=== PATIENT | female | born 1950 | race Caucasian/White ===

== ENCOUNTER → 2016-08-08 | Outpatient (CLI) | payer MEDICARE, BC ==
[2016-08-08 08:51] LABS: Blood Urea Nitrogen 15 mg/dL (7-17); Non-African American GFR(MDRD) >60 (>60 ml/min/1.73 sqM)
--- NOTE | 2016-08-08 10:04 | CT ---
EXAMINATION TYPE: CT ChestAbdPelvis w con DATE OF EXAM: 08/08/2016 9:38 AM COMPARISON: Prior CT chest abdomen pelvis 30 November 2014, one November 2015, four April 2016 HISTORY: Patient has no complaints at time of service. Follow up study for known endometrial CA. CT DLP: 2454 mGycm Automated exposure control for dose reduction was used. CONTRAST: CT scan of the chest, abdomen and pelvis is performed with Oral Contrast and with IV Contrast, patien t injected with 100 mL of Omnipaque 300. FINDINGS: In the supraclavicular location on the left there is a soft tissue mass measuring approxima tely 2.9 cm in diameter which is minimally increased as compared to prior exam, 2.8 cm. Soft tissue p osterior to the descending aorta shows a similar attenuation but may have grown slightly in the inter torres measuring approximately 3.5 cm x 5.2 centimeters in transverse by cephalad to caudal dimension wh ereas on previous exam measured 3.3 cm x 4.3. LUNGS: The lungs are remarkable for some groundglass opacity at the right lung base peripherally righ t and left, some minimal dependent atelectatic change is suspected additionally. Subpleural nodular d ensity in the left lower lobe on axial image 26 is subcentimeter in size, 3 to 4 mm subpleural nodula r density left lower lobe image #23 also not seen on previous exam. Pericardial effusion is present. There are coronary artery calcifications. There is no pleural effusion or pneumothorax seen. The tra cheobronchial tree is patent. MEDIASTINUM: There are no greater than 1 cm hilar or mediastinal lymph nodes. No pericardial effusi on is seen. AORTA: Right-sided aortic arch is present. Retroesophageal left subclavian vein is present, calcific ation present at the origin. OTHER: No additional significant abnormality is seen. LIVER/GB: Patient is post cholecystectomy. Liver shows low attenuation likely due to fatty infiltrati on and is enlarged. PANCREAS: No significant abnormality is seen. SPLEEN: Spleen is enlarged and not significantly changed ADRENALS: No significant abnormality is seen. KIDNEYS: No significant abnormality is seen. REPRODUCTIVE ORGANS: Absent BOWEL: No significant abnormality is seen. Umbilical hernia contains fat. FREE AIR: No Free Air visible. ASCITES: None seen. RETROPERITONEAL ADENOPATHY: No retroperitoneal adenopathy is seen. LYMPH NODES: No greater than 1 cm abdominal or pelvic lymph nodes are appreciated. URINARY BLADDER: No significant abnormality is seen. PELVIC ADENOPATHY: None visualized. OSSEOUS STRUCTURES: No significant abnormality is seen. IMPRESSION: Interval increase in size in patient's metastatic foci, difficult to exclude new pulmonar y diastasis. Hepatosplenomegaly, additional findings above.
== END | disposition home or self-care (01) ==
LOC: RADCTMAIN 08:08
PROVIDERS: ATTEND Internal Medicine Hematology & Oncology
DX: C54.1 Malignant neoplasm of endometrium (principal); R16.2 Hepatomegaly with splenomegaly, not elsewhere classified
CPT/HCPCS: 82565; 84520; 71260; 74177; 36415; Q9967

== ENCOUNTER → 2016-10-16 | Outpatient (CLI) | payer MEDICARE, BC ==
--- NOTE | 2016-10-16 23:26 | MR ---
EXAMINATION TYPE: MR courtneyine/baltazar wo/w con DATE OF EXAM: 10/16/2016 11:59 AM COMPARISON: NONE HISTORY: Endeometrial ca, Back pain, Rt leg is not working. CONTRAST: Performed utilizing 20 mL intravenous MultiHance gadolinium contrast. TECHNIQUE: Multiplanar, multiecho imaging on a 3.0 Su magnet is performed through the thoracic spi ne. There is a 2.2 x 1.2 x 1.2 cm mass posterior to the T9 vertebral body within the spinal canal mary kate sing the spinal cord towards the left. This enhances following contrast administration. No additional thoracic masses are identified. Approximate 0.3 cm of spinal canal space remains. There is increased signal within the spinal cord extending from T8 T10 Vertebral body alignment is normal. Vertebral body heights are preserved. Disc space narrowing is present T10-T11. Mild disc bulging is anterior thecal sac flattening. No cord contact is evident. Facet changes are present. Disc hydration levels are preserved. Osseous structures have a heterogenous appearance. Underlying metastasis is likely present. IMPRESSIONS: 1. Mass posterior to T9 within the spinal canal compressing the spinal cord. 2. Spinal cord edema extends from T8 through T10. 3. Osseous metastasis likely present EXAMINATION TYPE: MR courtneyine/baltazar wo/w con DATE OF EXAM: 10/16/2016 11:59 AM COMPARISON: NONE HISTORY: Endeometrial ca, Back pain, Rt leg is not working. CONTRAST: 20 mL intravenous MultiHance. TECHNIQUE: Multiplanar, multisequence images of the lumbar spine were acquired. FINDINGS: L5-S1: There is a grade 1 spondylolisthesis of L5 anteriorly on S1. Disc uncovering is present with a nterior thecal sac contact. Facet hypertrophy is present with posterior lateral thecal sac compressio n lateral canal narrowing. No AP spinal canal stenosis present. There is moderate right and mild left foraminal stenosis. L4-L5: Mild disc bulge is present. This is anterior thecal sac contact. Facet hypertrophy is ligament um flavum laxity with lateral canal narrowing. No AP spinal canal stenosis present. L3-L4: No significant disc bulge or disc herniation. No spinal canal stenosis. No foraminal stenosi s. Facet hypertrophy is present with posterior lateral thecal sac contact.. L2-L3: No significant disc bulge or disc herniation. No spinal canal stenosis. No foraminal stenosi s. Mild facet hypertrophy is present. L1-L2: No significant disc bulge or disc herniation. No spinal canal stenosis. No foraminal stenosi s. . T12-L1: No significant disc bulge or disc herniation. No spinal canal stenosis. No foraminal stenos is. Neural foramen are patent.. There is some heterogenous enhancement through the lumbar spine suspicious for metastatic disease. IMPRESSION: 1. Lateral canal stenosis due to facet hypertrophy L5-S1. 2. Grade 1 spondylolisthesis of L5 anterior S1. 3. Osseous metastasis likely present.
== END | disposition home or self-care (01) ==
LOC: RADMRIMAIN 09:44
PROVIDERS: ATTEND Internal Medicine Hematology & Oncology
DX: M48.07 Spinal stenosis, lumbosacral region (principal); G95.19 Other vascular myelopathies; M43.17 Spondylolisthesis, lumbosacral region; M53.84 Other specified dorsopathies, thoracic region; C54.1 Malignant neoplasm of endometrium
CPT/HCPCS: 72157; 72158; A9577

== ENCOUNTER 2016-10-17 01:36 | Emergency (ER) | payer MEDICARE, BC ==
[2016-10-17] MEDS ORDERED: DEXAMETHASONE SOD PHOSPHATE 10 MG/ML 1 ML VIAL IV STA (01:48)
[2016-10-17] MEDS ORDERED: MORPHINE SULFATE 4 MG/ML SYRINGE IV STA (01:49)
[2016-10-17 02:23] LABS: Aty Lym Flag Moderate; CH 29.5; CHCM 33.2; HCT 44.7 % (34.0-46.0); HDW 2.77; HGB 15.2 gm/dL (11.4-16.0); MCH 30.3 pg (25.0-35.0); MCHC 33.9 g/dL (31.0-37.0); MCV 89.2 fL (80.0-100.0); Mean Platelet Volume 6.5; RBC 5.01 m/uL (3.80-5.40); RDW 14.1 % (11.5-15.5); WBC 8.7 k/uL (3.8-10.6); WBC (Perox) 8.59
[2016-10-17 02:30] LABS: Anion Gap 10 mmol/L; Blood Urea Nitrogen 21 mg/dL (7-17); Calcium 9.3 mg/dL (8.4-10.2); Carbon Dioxide 23 mmol/L (22-30); Chloride 105 mmol/L (98-107); Glucose 93 mg/dL (74-99); Non-African American GFR(MDRD) >60 (>60 ml/min/1.73 sqM); Potassium 3.7 mmol/L (3.5-5.1); Sodium 138 mmol/L (137-145)
[2016-10-17 03:13] LABS: Add Differential Manual Differential
[2016-10-17 03:16] LABS: Manual Review Performed; Nucleated Red Blood Cells 0 /100 WBC (0-0); Reactive Lymphocytes Present; Total Cells Counted 100
--- NOTE | 2016-10-17 03:17 | ED ---
General Adult HPI - General Chief complaint: Recheck/Abnormal Lab/Rx Stated complaint: spinal tumor-sent by Dr Nieto Time Seen by Provider: 10/17/16 01:48 Source: patient, family Mode of arrival: ambulatory Limitations: no limitations - History of Present Illness Initial comments: This patient is a 66-year-old woman who presents to the hospital due to back pain and right leg weakness. The patient gives a history of having uterine cancer about 3 or 4 years ago, and then having what sounds like a brain met 1-2 years ago. She states she had been having some back pains over the past couple of months, she was eventually seen by one of the oncologist who sent her to have an MRI of the spine. This revealed presence of what appears to be a spinal metastasis and cord compression. The patient notes that over the past week she has been having increasing right leg weakness. She states that now she is not able to lift her leg and less she grasps her pant leg and lifts her leg by hand. He has also had some difficulty in initiating urination. Onset/Timin -: week(s) Location: back Radiation: non-radiation Severity scale (1-10): 6 Quality: burning Consistency: constant Improves with: none Worsens with: none - Related Data Home Medications Medication Instructions Recorded Confirmed ALPRAZolam [Xanax] 0.5 mg PO HS 04/12/14 10/17/16 Anastrozole [Anastrozole] 1 mg PO DAILY 04/12/14 10/17/16 Aspirin 81 mg PO DAILY 04/12/14 10/17/16 Hydrocodone/Acetaminophen 1 tab PO Q8HR PRN 04/12/14 10/17/16 [Hydrocodone/Acetaminophen 5-325] Ranitidine HCl [Zantac] 150 mg PO DAILY 04/12/14 10/17/16 traZODone HCL [Desyrel] 100 mg PO HS 04/12/14 10/17/16 Cyclobenzaprine [Flexeril] 5 mg PO TID 10/17/16 10/17/16 Previous Rx's Medication Instructions Recorded HYDROcodone/APAP 7.5-325MG [[place] 1 each PO Q4H PRN #40 tab 04/14/14 7.5] HYDROcodone/APAP 10-325MG [[place] 1 each PO Q6H PRN #15 tab 11/24/14 10-325] HYDROcodone/APAP 7.5-325MG [[place] 1 each PO Q4H PRN #15 tab 11/24/14 7.5-325] valACYclovir HCL [Valtrex] 1,000 mg PO Q8HR #21 tab 11/24/14 Allergies Allergy/AdvReac Type Severity Reaction Status Date / Time No Known Allergies Allergy Verified 10/17/16 01:44 Review of Systems ROS Statement: Those systems with pertinent positive or pertinent negative responses have been documented in the HPI. ROS Other: All systems not noted in ROS Statement are negative. Constitutional: Reports: weakness (Right leg). Denies: fever, chills Respiratory: Denies: cough, dyspnea, wheezes Cardiovascular: Denies: chest pain, palpitations, edema Gastrointestinal: Denies: abdominal pain, vomiting, diarrhea, melena, hematochezia Genitourinary: Denies: dysuria, hematuria Musculoskeletal: Reports: as per HPI, back pain Skin: Denies: rash Neurological: Reports: weakness (Right leg), abnormal gait. Denies: headache, numbness, paresthesias Past Medical History Past Medical History: Cancer Additional Past Medical History / Comment(s): Uterine Cancer, tumor on spine History of Any Multi-Drug Resistant Organisms: None Reported Past Surgical History: Appendectomy, Cholecystectomy, Hysterectomy, Orthopedic Surgery, Tonsillectomy Additional Past Surgical History / Comment(s): medi port Past Psychological History: No Psychological Hx Reported Smoking Status: Never smoker Past Alcohol Use History: None Reported Past Drug Use History: None Reported General Exam Limitations: no limitations General appearance: alert, in no apparent distress, obese Head exam: Present: atraumatic, normocephalic Eye exam: Present: normal appearance. Absent: scleral icterus, conjunctival injection Respiratory exam: Present: normal lung sounds bilaterally. Absent: respiratory distress, wheezes, rales, rhonchi, stridor Cardiovascular Exam: Present: regular rate, normal rhythm, normal heart sounds. Absent: systolic murmur, diastolic murmur, rubs, gallop GI/Abdominal exam: Present: soft. Absent: distended, tenderness, guarding, rebound, mass Extremities exam: Present: normal inspection, normal capillary refill. Absent: pedal edema, calf tenderness Back exam: Absent: CVA tenderness (R), CVA tenderness (L), paraspinal tenderness , vertebral tenderness Neurological exam: Present: alert, motor sensory deficit (Patient has marked weakness of foot dorsiflexion.) Course Vital Signs 10/17/16 01:40 Temperature 98 F Pulse Rate 89 Respiratory 20 Rate Blood Pressure 127/69 O2 Sat by Pulse 95 Oximetry Medical Decision Making - Medical Decision Making Patient is 66-year-old woman presenting with back pain and right leg weakness. She does have what appears to be metastases to the spine at the T9 level identified by the MRI. Patient is given analgesic and Decadron. After discussion with the patient's oncologist and the patient she would like to go to [facility] where she has previously had service of Dr. Tai. - Lab Data Result diagrams: 10/17/16 02:05 10/17/16 02:05 Lab Results 10/17/16 10/17/16 Range/Units 02:05 02:05 WBC 8.7 (3.8-10.6) k/uL RBC 5.01 (3.80-5.40) m/uL Hgb 15.2 (11.4-16.0) gm/dL Hct 44.7 (34.0-46.0) % MCV 89.2 (80.0-100.0) fL MCH 30.3 (25.0-35.0) pg MCHC 33.9 (31.0-37.0) g/dL RDW 14.1 (11.5-15.5) % Plt Count 198 (150-450) k/uL Neutrophils % (Manual) 48.0 % Lymphocytes % (Manual) 42.0 % Monocytes % (Manual) 10.0 % Neutrophils # (Manual) 4.2 (1.3-7.7) k/uL Lymphocytes # (Manual) 3.7 (1.0-4.8) k/uL Monocytes # (Manual) 0.9 (0-1.0) k/uL Nucleated RBCs 0 (0-0) /100 WBC Manual Slide Review Performed Reactive Lymphocytes Present Sodium 138 (137-145) mmol/L Potassium 3.7 (3.5-5.1) mmol/L Chloride 105 (98-107) mmol/L Carbon Dioxide 23 (22-30) mmol/L Anion Gap 10 mmol/L BUN 21 H (7-17) mg/dL Creatinine 0.70 (0.52-1.04) mg/dL Est GFR (MDRD) Af Amer >60 (>60 ml/min/1.73 sqM) Est GFR (MDRD) Non-Af >60 (>60 ml/min/1.73 sqM) Glucose 93 (74-99) mg/dL Calcium 9.3 (8.4-10.2) mg/dL Disposition Clinical Impression: Spinal 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 Specs Out of Hospital Transfer - Requested Specifics: Other Emergency Center
[2016-10-17 03:29] VITALS: BP 158/73; PULSE 74; RESP 18; TEMP 97.1
== END 2016-10-17 03:50 | disposition other institution (70) ==
LOC: EC 01:36
DX: C79.51 Secondary malignant neoplasm of bone (principal); G95.29 Other cord compression; Z85.42 Personal history of malignant neoplasm of other parts of uterus; Z79.82 Long term (current) use of aspirin; Z79.899 Other long term (current) drug therapy
CPT/HCPCS: 36415; 80048; 85025; 99285; 96374; 96375; J2270; J1100

== ENCOUNTER → 2017-01-02 | Outpatient (CLI) | payer MEDICARE, BC ==
[2017-01-02 14:55] LABS: Blood Urea Nitrogen 9 mg/dL (7-17); Non-African American GFR(MDRD) >60 (>60 ml/min/1.73 sqM)
--- NOTE | 2017-01-02 15:34 | CT ---
EXAMINATION TYPE: CT chest w con DATE OF EXAM: 01/02/2017 COMPARISON: 08/08/2016 HISTORY: Endometrial CA, chemo exposure CT DLP: 489.2 mGycm Automated exposure control for dose reduction was used. CONTRAST: CT scan of the chest is performed with IV Contrast, patient injected with 100 mL of Omnipaque 300. FINDINGS: LUNGS: Subpleural nodule left lower lobe stable in size measuring 3 mm. Linear subpleural nodule righ t upper lobe posteriorly is most likely postinflammatory. Areas of subsegmental consolidation most ty pical of atelectasis. MEDIASTINUM: Right-sided aortic arch noted appears to result in a vascular ring around the trachea wi th retroesophageal left subclavian artery. Anterior mediastinal lymphadenopathy seen the largest lymp h node measuring short axis of 1 cm and previously measured in short axis of 1 cm and stable. Additio nal shotty adenopathy seen. Subcarinal adenopathy also appears stable. Retroaortic density in the rig ht with right-sided aortic arch is also stable measures 3.3 x 2.3 cm x 5.2 and previously measured 3. 3 x 2.5 cm x 5.2. Small pericardial effusion is stable. The heart is enlarged. OTHER: Left supraclavicular adenopathy measuring 3 cm is stable in appearance.. Shotty adenopathy in the axilla noted. Previous cholecystectomy changes noted. Postsurgical change in the thoracic spine suggestive of laminectomy. Correlate clinically. Subcutaneous fluid collection likely postoperative i n the posterior soft tissues. No definite mass seen by CT scan. Attenuation along the posterior eleme nts of the area of resection most likely related to scar or granulation tissue but most adequately ev aluated with MRI. IMPRESSION: 1. Stable adenopathy involving the supraclavicular region on the left and mediastinum as measured abo ve. 2. 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 3. Stable subpleural less than 5 mm nodularity unchanged from previous exam. 4. Small to moderate-sized pericardial effusion is stable
--- NOTE | 2017-01-03 09:48 | ECHOF ---
Referral Reason: MEASUREMENTS -------- HEIGHT: 157.5 cm WEIGHT: 113.4 kg BP: 142/74 RVIDd: 2.7 cm (< 3.3) IVSd: 1.3 cm (0.6 - 1.1) LVIDd: 4.3 cm (3.9 - 5.3) LVPWd: 1.3 cm (0.6 - 1.1) IVSs: 1.7 cm LVIDs: 3.0 cm LVPWs: 1.6 cm LAESV Index (A-L): 17.64 ml/m Ao Diam: 3.6 cm (2.0 - 3.7) AV Cusp: 1.1 cm (1.5 - 2.6) LA Diam: 3.3 cm (2.7 - 3.8) MV EXCURSION: 17.701 mm (> 18.000) MV EF SLOPE: 46 mm/s (70 - 150) EPSS: 0.7 cm MV E Fletcher: 0.52 m/s MV DecT: 286 ms MV A Fletcher: 0.67 m/s MV E/A Ratio: 0.78 RAP: 5.00 mmHg RVSP: 16.53 mmHg FINDINGS -------- Sinus rhythm. This was a technically adequate study. Patient had difficulty moving. Test performed in a wheelchair in the upright position. There is mild concentric left ventricular hypertrophy. Overall left ventricular systolic function is normal with, an EF between 55 - 60 %. The right ventricle is normal in size and function. Normal LA size by volume 22+/-6 ml/m2. The right atrium is normal in size. There is mild aortic valve sclerosis. There is no evidence of aortic regurgitation. There is no evidence of aortic stenosis. The mitral valve leaflets are mildly thickened. Mild mitral annular calcification present. There is trace to mild mitral regurgitation. Trace tricuspid regurgitation present. There is no evidence of pulmonary hypertension. The right ventricular systolic pressure, as measured by Doppler, is 16.53mmHg. The pulmonic valve was not well visualized. The aortic root size is normal. Normal inferior vena cava with normal inspiratory collapse consistent with estimated right atrial pressure of 5 mmHg. The pericardium is normal. There is a small, generalized pericardial effusion present. CONCLUSIONS -------- 1. Sinus rhythm. 2. There is trace to mild mitral regurgitation. 3. Trace tricuspid regurgitation present. 4. There is no evidence of pulmonary hypertension. 5. The right ventricular systolic pressure, as measured by Doppler, is 16.53mmHg. 6. The pulmonic valve was not well visualized. 7. The aortic root size is normal. 8. There is a small, generalized pericardial effusion present. 9. This was a technically adequate study. 10. Patient had difficulty moving. Test performed in a wheelchair in the upright position. 11. There is mild concentric left ventricular hypertrophy. 12. Overall left ventricular systolic function is normal with, an EF between 55 - 60 %. 13. Normal LA size by volume 22+/-6 ml/m2. 14. There is mild aortic valve sclerosis. 15. The mitral valve leaflets are mildly thickened. 16. Mild mitral annular calcification present. FINANCIAL OPERATIONS CONSULTANT: Se Rogers RDCS
== END | disposition home or self-care (01) ==
LOC: RADCTMAIN 14:19
PROVIDERS: ATTEND Internal Medicine Hematology & Oncology
DX: Z01.818 Encounter for other preprocedural examination (principal); C54.1 Malignant neoplasm of endometrium; I08.1 Rheumatic disorders of both mitral and tricuspid valves; I31.3 Pericardial effusion (noninflammatory); Q25.8 Other congenital malformations of other great arteries
CPT/HCPCS: 93306; 82565; 84520; 71260; 36415; Q9967

== ENCOUNTER → 2017-03-23 | Outpatient (CLI) | payer MEDICARE, BC ==
[2017-03-23 12:49] LABS: Blood Urea Nitrogen 13 mg/dL (7-17); Non-African American GFR(MDRD) >60 (>60 ml/min/1.73 sqM)
== END | disposition home or self-care (01) ==
LOC: LABWHC1 11:42
PROVIDERS: ATTEND Internal Medicine Hematology & Oncology
DX: Z01.812 Encounter for preprocedural laboratory examination (principal); C54.9 Malignant neoplasm of corpus uteri, unspecified
CPT/HCPCS: 36415; 82565; 84520

== ENCOUNTER → 2017-03-26 | Outpatient (CLI) | payer MEDICARE, BC ==
--- NOTE | 2017-03-26 08:53 | CT ---
EXAMINATION TYPE: CT soft tissue neck w con, CT ChestAbdPelvis w con DATE OF EXAM: 03/26/2017 HISTORY: supraclavicular swelling on the Lt, hx of endometrial CA COMPARISON: 01/02/2017 and 08/08/2016 CT DLP: 565.75 (accession [id number]), 2613.25 (accession [id number]) mGycm. Automated Exposure Control for Dose Reduction was Utilized. TECHNIQUE: CT scan of the neck is performed with IV Contrast, patient injected with 100 mL of Omnipa que 300, axial images are obtained, coronal and sagittal reformatted images are reviewed. FINDINGS: NECK: Adenopathy: Left supraclavicular mass measures at least 3.9 x 4.3 x 5.2 cm with surrounding inflammat ory change and central necrosis. There is mass effect upon the jugular vein and its inferior portion with multiple surrounding smaller lymph nodes within the supraclavicular region and superior left axilla. Abnormal morphology with a rounded appearance. Numerous other nonenlarged (none greater than 1 cm in short axis) anterior and posterior cervical chain lymph nodes are present. Airway: No gross abnormali ty seen. PAROTID/SUBMANDIBULAR GLANDS: No gross abnormality seen. CAROTID/VASCULAR STRUCTURES: No evidence of hemodynamically significant stenosis. Note is made of a r ight-sided aortic arch and retroesophageal origin of the left subclavian vein that again places mass effect upon the esophagus as it is interposed between the trachea and descending thoracic aorta. OTHER: Left occipital craniectomy change with fixation plates are seen. CHEST/ABDOMEN/PELVIS: LUNGS: There is a stable presumably benign 3 mm subpleural nodule in the superior segment of the left lower lobe on series 11 image 23. Although evaluation for subcentimeter pulmonary nodules is slightl y limited given patient respiratory artifact no new pulmonary nodules or masses are seen. Minimal bib asilar subsegmental atelectasis is noted. There is no pleural effusion or pneumothorax seen. The tra cheobronchial tree is patent. MEDIASTINUM: There is also been interval enlargement and new rounded suspicious morphology of a preva scular lymph node on series 10 image 17 measuring 1.8 cm in short axis. There is also increase in siz e of the right paraspinal mass that extends approximately 180 degrees around the descending thoracic aorta measuring approximately 4.3 x 3.8 x 6.5 cm (previously measuring 3.3 x 2.3 x 5.2 cm). The known spinal cord edema previously seen on the MRI dated 10/16/2016 is not visualized on CT nor is the comp ression on the spinal cord. OTHER: Minimally increased pericardial effusion is low density with greatest thickness posteriorly me asuring 1.5 cm, moderate in degree. Mild calcifications of the left anterior descending coronary bella ry and mitral annulus are noted. LIVER/GB: The liver is grossly unremarkable with no focal hepatic lesion identified. Scant amount of perihepatic fluid is seen along the inferior margin tracking down the right lateral conal fascia. Gal lbladder is surgically absent. PANCREAS: Diffuse moderate pancreatic atrophy is noted. SPLEEN: Spleen is mildly prominent but not enlarged measuring 13.2 cm in craniocaudal dimension. ADRENALS: No significant abnormality is seen. KIDNEYS: Left renal sinus cyst and right lower pole and upper pole cortical hypoattenuated lesions th at are too small to accurately characterize but likely represent cysts are redemonstrated, overall un changed from the prior exam. No evidence of hydronephrosis. BOWEL: Few sigmoid diverticula are present without pericolonic fat stranding. Multiple loops of dista l ileum are not opacified in the right low pelvis and right lower quadrant but have a similar morphol ogy to the prior exam. GENITAL ORGANS: The uterus is surgically absent with stable surgical scarring/granulation tissue. Uri nary bladder is incompletely distended although does demonstrate some surrounding fat stranding and m ucosal hyperemia circumferential thickening which may relate to underlying cystitis. LYMPH NODES: Enlarged superficial inguinal lymph nodes in comparison to the prior exam are seen bilat erally, abnormally rounded in morphology measuring up to 1.0 cm in short axis on the left and 1.1 cm in short axis on the right. Numerous nonenlarged periaortic lymph nodes are seen. OSSEOUS STRUCTURES: Postsurgical changes of the thoracic spine are again noted with no new suspicious osseous lesion. Small fluid collection posterior has decreased in size and likely represents resolvi ng seroma with scar/granulation tissue. Stable grade 1 anterolisthesis of L5 on S1 is again seen. Sta ble bone islands are present in the visualized femurs. OTHER: Diastases recti and postsurgical changes of the subcutaneous soft tissues are noted. Right-burt ed Mediport is also seen. IMPRESSION: 1. Progression of presumed metastatic disease of the patient's known endometrial carcinoma with new i nterval significant enlargement in the known left supraclavicular adenopathy, right paraspinal mass t hat also may represent adenopathy, mediastinal adenopathy, and superficial inguinal adenopathy. 2. Increase in degree of simple appearing pericardial effusion, now moderate measuring up to 1.5 cm d ependently. 3. Prominent but nonenlarged size of the spleen approaching criteria for splenomegaly. 4. No evidence of pulmonary or visceral metastasis. Findings relayed to staff Yvonne CAPONE) at Dr. Durbin's office who will relay the information to Dr. Caden gutierrez directly on 03/26/2017 8:48 AM.
== END ==
LOC: RADCTMAIN 06:49
PROVIDERS: ATTEND Internal Medicine Hematology & Oncology
DX: C54.9 Malignant neoplasm of corpus uteri, unspecified (principal); I31.3 Pericardial effusion (noninflammatory); R16.1 Splenomegaly, not elsewhere classified
CPT/HCPCS: 70491; 71260; 74177; Q9967

== ENCOUNTER → 2017-05-21 | Outpatient (CLI) | payer MEDICARE, BC ==
[2017-05-21 11:16] LABS: Blood Urea Nitrogen 15 mg/dL (7-17); Non-African American GFR(MDRD) >60 (>60 ml/min/1.73 sqM)
--- NOTE | 2017-05-21 12:32 | CT ---
EXAMINATION TYPE: CT ChestAbdPelvis w con DATE OF EXAM: 05/21/2017 COMPARISON: CT chest abdomen and pelvis from March 26, 2017 and older studies. HISTORY: Endometrial cancer. Hx of hysterectomy, cholecystectomy, appendectomy, bowel obstruction. 10 0ml of Omni 300. Prior on 03.26.17. Scanned by: LS and MB. Currently undergoing chemotherapy. CT DLP: 1674.6 mGycm. Automated Exposure Control for Dose Reduction was Utilized. CONTRAST: CT scan of the thorax, abdomen and pelvis is performed with oral and with IV Contrast, patient inject ed with 100ml mL of Omnipaque 300. FINDINGS: LUNGS: 2 mm subpleural nodule superior left lower lobe on axial image 26 is stable. On same image th ere is new 3 mm nodular opacity. On same image there is new 6 x 4 mm semisolid nodule anteriorly. Th ere is peripheral irregular consolidation in the inferior lingula near axial image 36. There is stabl e 8 x 6 mm lobulated nodule posterior right lung base on axial image 40. There is no pleural effusion or pneumothorax seen bilaterally. The tracheobronchial tree is patent. MEDIASTINUM: There is left-sided AP window lymph node measuring 1.8 x 1.6 cm current study image 22 n ot significantly changed from prior. There is redemonstration of right-sided arch with a variant lef t subclavian artery running posterior to esophagus, normal variant. There is left supraclavicular irr egular hypodense mass or metastatic lesion measuring 2.8 x 2.5 cm on axial image 6 slightly diminishe d from prior study measuring 3.3 x 3.2 cm axial image 4. There is persistent cardiomegaly. There is p ersistent moderate pericardial effusion perhaps slightly larger as measures up to 2.4 cm in diameter axial image 39, Hounsfield units are near 16 on current study. Coronary artery calcification is redem onstrated. Suspicious curvilinear soft tissue density along posterior medial margin of ascending aort a is again seen perhaps slightly less prominent measuring 3.1 x 2.6 cm on axial image 35 OTHER: No additional significant abnormality is seen. LIVER/GB: Cholecystectomy clips are redemonstrated. PANCREAS: Some mild to moderate fat replaced atrophy of pancreas is again seen. SPLEEN: Spleen size is stable and upper limits of normal. ADRENALS: No significant abnormality is seen. KIDNEYS: A few simple appearing cyst lower pole level of both kidneys is redemonstrated. There are fe w scattered pelvic phleboliths. BOWEL: A few scattered colonic diverticula are redemonstrated. GENITAL ORGANS: Uterus is surgically absent. LYMPH NODES: Prominent but subcentimeter left groin lymph nodes are redemonstrated and felt less prom inent versus prior. OSSEOUS STRUCTURES: Osseous structures are demineralized. Slight S-shaped scoliosis is redemonstrated . Surgical change mid to lower thoracic spine with posterior ossific resection is redemonstrated. Scl erotic focus right proximal femur felt to reflect benign bone island is redemonstrated. OTHER: No significant additional abnormality is seen. IMPRESSION: Overall mixed response is felt present. Interval improvement in visualized left supraclav icular and right periaortic adenopathy. Stable tiny left lung nodule but new suspicious subcentimeter left-sided nodules. Moderate size pericardial effusion redemonstrated continued slight progression i n size is noted.
== END | disposition home or self-care (01) ==
LOC: RADCTMAIN 09:29
PROVIDERS: ATTEND Internal Medicine Hematology & Oncology
DX: C54.1 Malignant neoplasm of endometrium (principal); R91.8 Other nonspecific abnormal finding of lung field; R59.0 Localized enlarged lymph nodes; I31.3 Pericardial effusion (noninflammatory)
CPT/HCPCS: 82565; 84520; 71260; 74177; 36415; Q9967

== ENCOUNTER 2017-08-16 12:59 | Inpatient (IN) | payer MEDICARE, BC ==
[2017-08-16] MEDS ORDERED: ONDANSETRON 4 MG/2 ML VIAL IVP STA (13:22)
[2017-08-16] MEDS ORDERED: MORPHINE SULFATE 4 MG/ML SYRINGE IV STA (13:22)
[2017-08-16] MEDS ORDERED: SODIUM CHLORIDE 0.9% 1,000 ML IV STA (13:22)
--- NOTE | 2017-08-16 14:15 | XR ---
EXAMINATION TYPE: XR chest 2V, XR KUB DATE OF EXAM: 08/16/2017 COMPARISON: NONE HISTORY: Chest pain and abdominal pain TECHNIQUE: Frontal and lateral views of the chest are obtained. Single upright abdominal radiograph was obtained FINDINGS: CHEST: There is no focal air space opacity, pleural effusion, or pneumothorax seen. Scattered left b asilar linear platelike subsegmental atelectasis is present. Right-sided Mediport is seen near the [facility] cardiophrenic angle extending into the right internal jugular and terminating in the superior dina a cava. The cardiac silhouette size is upper limits of normal. The osseous structures are intact. ABDOMEN: Moderate amount retained colonic stool is seen within nondilated bowel with the descending c olon measuring up to 5.0 cm. Mottled air is noted within the cecum. Cholecystectomy clips are seen wi thin the right upper quadrant. Moderate multilevel degenerative changes of the thoracic spine and fem oral acetabular joints. Surgical sutures are noted within the right hemipelvis. IMPRESSION: 1. No acute cardiopulmonary process. 2. Moderate amount retained colonic gas and stool and overall nonobstructive bowel gas pattern.
--- NOTE | 2017-08-16 14:16 | ED ---
General Adult HPI - General Chief complaint: Skin/Abscess/Foreign Body Stated complaint: cancer patient-skin turning yellow Time Seen by Provider: 08/16/17 13:12 Source: patient, family Mode of arrival: wheelchair Limitations: physical limitation - History of Present Illness Initial comments: 67 years old female sets with the abdominal pain and jaundice according to the patient she has a cancer of the lymph nodes she sees Dr. Durbin also complaining about the back pain she had a spinal surgery back by year ago there was a cancerous spot on the spine, she had a cancer of the uterus and spread into the spine she had a body scan done which was ordered by Dr. Durbin this month earlier seen Dr. Thomas on the July 31. Taking tramadol OxyContin and morphine for the pain he does take the edge off but she is not pain-free. Complaining about jaundice no headache no chest pain or shortness of breath complains about abdominal pain and right upper quadrant area. Her oral intake has been quite poor and she has been losing weight. - Related Data Home Medications Medication Instructions Recorded Confirmed ALPRAZolam [Xanax] 0.5 mg PO BID PRN 04/12/14 08/16/17 traZODone HCL [Desyrel] 150 mg PO HS 04/12/14 08/16/17 Aspirin EC [Ecotrin] 325 mg PO DAILY 08/16/17 08/16/17 Biotin 5 mg PO DAILY 08/16/17 08/16/17 Cholecalciferol [Vitamin D3] 1,000 unit PO DAILY@1200 08/16/17 08/16/17 Citalopram Hydrobromide [CeleXA] 10 mg PO BID 08/16/17 08/16/17 Docusate [Colace] 100 mg PO BID 08/16/17 08/16/17 Dronabinol [Marinol] 2.5 mg PO DAILY 08/16/17 08/16/17 Glucosamine Sulfate 500 mg PO DAILY 08/16/17 08/16/17 Lidocaine-Prilocaine Cream [Emla 1 applic TOPICAL DAILY PRN 08/16/17 08/16/17 Cream 2.5%/2.5%] Methocarbamol [Robaxin-750] 1,500 mg PO QID PRN 08/16/17 08/16/17 Methylphenidate HCl [Ritalin] 10 mg PO BID 08/16/17 08/16/17 Morphine Sulfate [Morphine Sulfate 30 mg PO Q12H 08/16/17 08/16/17 ER] Omeprazole 20 mg PO DAILY 08/16/17 08/16/17 Ondansetron [Zofran] 4 mg PO TID 08/16/17 08/16/17 Prochlorperazine [Compazine] 10 mg PO DAILY PRN 08/16/17 08/16/17 Sennosides-Docusate Sodium 2 tab PO BID 08/16/17 08/16/17 [Senokot-S] Simethicone 80 mg PO DAILY PRN 08/16/17 08/16/17 oxyCODONE HCL 10 mg PO DAILY@0300 08/16/17 08/16/17 traMADol HCL [Ultram] 50 mg PO DAILY@1200 PRN 08/16/17 08/16/17 Allergies Allergy/AdvReac Type Severity Reaction Status Date / Time No Known Allergies Allergy Verified 08/16/17 13:33 Review of Systems ROS Statement: Those systems with pertinent positive or pertinent negative responses have been documented in the HPI. ROS Other: All systems not noted in ROS Statement are negative. Past Medical History Past Medical History: Cancer Additional Past Medical History / Comment(s): Uterine Cancer, tumor on spine History of Any Multi-Drug Resistant Organisms: None Reported Past Surgical History: Appendectomy, Cholecystectomy, Hysterectomy, Orthopedic Surgery, Tonsillectomy Additional Past Surgical History / Comment(s): medi port Past Psychological History: No Psychological Hx Reported Smoking Status: Never smoker Past Alcohol Use History: None Reported Past Drug Use History: None Reported General Exam - General Exam Comments Initial Comments: General: The patient is awake and alert, in no distress, and he looks tired and pale GCS is 15 Skin: Skin is warm and dry and no rashes or lesions are noted. Quite jaundiced Eye: Pupils are equal, round and reactive to light, extra-ocular movements are fine Ears, nose, mouth and throat: Quite dehydrated Neck: The neck is supple, there is no tenderness or JVD. Cardiovascular: There is a regular rate and rhythm. No murmur, rub or gallop is appreciated. Respiratory: To auscultation bilateral, no wheezing no rhonchi no distress respiratory jay noticed Gastrointestinal: Anterior abdomen looks quite jaundiced, soft nontender bowel sounds are positive mildly tender over right upper quadrant area no guarding. Back: There is no tenderness to palpation in the midline. There is no obvious deformity. Musculoskeletal: Normal ROM, no tenderness, There is no pedal edema. There is no calf tenderness or swelling. No cords were appreciated. Neurological: CN II-XII intact, Cranial nerves III through XII are intact. There are no obvious motor or sensory deficits. Coordination appears grossly intact. Speech is normal. Psychiatric: Cooperative, seems depressed, normal judgment. Limitations: physical limitation Course Vital Signs 08/16/17 08/16/17 13:00 14:26 Temperature 97.2 F L Pulse Rate 92 77 Respiratory 16 16 Rate Blood Pressure 117/69 144/70 O2 Sat by Pulse 97 98 Oximetry - Reevaluation(s) Reevaluation #1: Labs are pending at this point so is the CT abdomen and pelvis considering her oral intake weight loss and unexplained jaundice, this is new onset she would need admission she be admitted to Dr. Ernst service regardless Dr. Durbin be consulted 08/16/17 14:59 Medical Decision Making - Lab Data Result diagrams: 08/16/17 14:20 Lab Results 08/16/17 Range/Units 14:20 WBC 13.5 H (3.8-10.6) k/uL RBC 4.06 (3.80-5.40) m/uL Hgb 12.3 (11.4-16.0) gm/dL Hct 41.0 (34.0-46.0) % MCV 101.1 H (80.0-100.0) fL MCH 30.4 (25.0-35.0) pg MCHC 30.1 L (31.0-37.0) g/dL RDW 14.9 (11.5-15.5) % Disposition Clinical Impression: History of uterine cancer Disposition: ADMITTED IP TO THIS HOSP Condition: Good Referrals: Octavio Lamar DO [Primary Care Provider] - 1-2 days
[2017-08-16] MEDS ORDERED: RX INFO: IV CONTRAST WAS GIVEN 1 EACH MISC MISCELLANE PRN (14:17)
[2017-08-16 14:40] LABS: HGB 12.3 gm/dL (11.4-16.0); Hypochromasia Marked; MCH 30.4 pg (25.0-35.0); MCHC 30.1 g/dL (31.0-37.0); MCV 101.1 fL (80.0-100.0); Macrocytosis Slight; Mean Platelet Volume 6.4; Platelet Count 188 k/uL (150-450); RBC 4.06 m/uL (3.80-5.40); RDW 14.9 % (11.5-15.5); WBC 13.5 k/uL (3.8-10.6)
[2017-08-16] MEDS ORDERED: NALOXONE 0.4 MG/ML 1 ML VIAL IV PRN (15:00)
[2017-08-16 15:02] LABS: ALT 407 U/L (9-52); AST 445 U/L (14-36); Albumin 3.2 g/dL (3.5-5.0); Alkaline Phosphatase 932 U/L (38-126); Amylase <30 U/L (30-110); Anion Gap 13 mmol/L; Blood Urea Nitrogen 12 mg/dL (7-17); Carbon Dioxide 23 mmol/L (22-30); Chloride 98 mmol/L (98-107); Glucose 106 mg/dL (74-99); Lipase 15 U/L (23-300); Sodium 134 mmol/L (137-145); Total Bilirubin 13.2 mg/dL (0.2-1.3); Total Protein 6.8 g/dL (6.3-8.2)
[2017-08-16] MEDS ORDERED: PROCHLORPERAZINE 10 MG TAB PO PRN (15:06)
[2017-08-16] MEDS ORDERED: LIDOCAINE-PRILOCAINE 2.5-2.5% CREAM 5 GM TUBE TOPICAL PRN (15:06)
[2017-08-16] MEDS ORDERED: SIMETHICONE 80 MG CHEWABLE PO PRN (15:06)
[2017-08-16 15:07] LABS: Lymphocytes # (M) 7.56 k/uL (1.0-4.8); Monocytes # (M) 0.41 k/uL (0-1.0); Neutrophils # (M) 5.54 k/uL (1.3-7.7); Neutrophils % (M) 41 %; Nucleated Red Blood Cells 0 /100 WBC (0-0); Total Cells Counted 100
--- NOTE | 2017-08-16 15:57 | CT ---
EXAMINATION TYPE: CT abdomen pelvis w con DATE OF EXAM: 08/16/2017 HISTORY: Jaundice. History of uterine cancer with previous tumors to brain and spine. CT DLP: 1262.4mGycm Automated Exposure Control for Dose Reduction was Utilized. CONTRAST: CT scan of the abdomen and pelvis is performed with IV Contrast, patient injected with 100 mL of Omni paque 300. COMPARISON: None. FINDINGS: LUNG BASES: There is a 7 mm right basilar pulmonary nodule, a 6 mm right basilar pulmonary nodule and 5 nodules within the left lung base measuring 1.0 cm, 6 mm, 7 mm, 6 mm and 5 mm. Scattered areas of subsegmental atelectasis are also seen. Some of these are new and some demonstrate minimal interval g rowth in comparison to exam of 07/24/2017. Small pericardial effusion is noted. LIVER/GB: There is moderate intrahepatic and marked extra hepatic biliary ductal dilatation that appe ars to have increased from the prior exam. Although the pancreatic duct is prominent and does not helen ear dilated. Gallbladder is surgically absent. No focal hepatic lesions are identified. Inflammatory changes noted in the carlton hepatis and to a lesser degree to surrounding the descending duodenum. PANCREAS: No gross ductal dilatation, mild heterogeneity of the pancreatic head enhancement is questi onable. 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 Spleen is ag ain upper limits of normal size. ADRENALS: No significant abnormality is seen. KIDNEYS: Bilateral renal cysts and smaller hypoattenuated lesions that are too small to accurately ch aracterize are again seen. BOWEL: Few scattered colonic diverticula are present without pericolonic fat stranding. Large rectal fecal ball without pericolonic thickening measures 7.8 cm. Moderate amount retained coaxial is seen w ithin the colon.. UTERUS/ADNEXA: Surgical absence of the uterus. LYMPH NODES: No greater than 1cm abdominal or pelvic lymph nodes are appreciated. Numerous nonenlarge d central mesenteric lymph nodes are noted in the midline from series 3 image 38 through 43. OSSEOUS STRUCTURES: A concerning sclerotic focus is partially visualized on the first axial image of series 3 and image 75 of coronal sequence at T7. Scattered punctate sclerotic foci are also seen with in the osseous structures that are likely related to benign bone islands. OTHER: No significant additional abnormality is seen. IMPRESSION: 1. Moderate intrahepatic and marked extrahepatic biliary ductal dilatation with no gross pancreatic d uctal dilatation. Common bile duct distal stricture or periampullary mass are possible etiologies. Fu rther evaluation with MRCP with and without contrast could be performed. There is also mild fat stran ding surrounding the carlton hepatis and descending duodenum with somewhat heterogeneity of the pancrea tic head and pancreatic mass should also be excluded with the above recommended examination. 2. Rectal fecal impaction measuring 7.8 cm. 3. Suspicious osseous lesion partially visualized of the T7 vertebral body concerning for metastasis. 4. Multiple bilateral pulmonary nodules at the lung bases compatible with metastasis.
[2017-08-16 16:23] VITALS: BMI 36.2
[2017-08-16] MEDS: METHYLPHENIDATE HCL 10 MG TAB PO SCH (18:02)
[2017-08-16] MEDS: ONDANSETRON 4 MG TAB PO SCH ×2 (18:05→22:07)
--- NOTE | 2017-08-16 18:14 | P.CONS ---
History of Present Illness - Reason for Consult Consult date: 08/16/17 Jaundice, metastatic endometrial cancer Requesting physician: Jennifer Ernst - Chief Complaint Weakness and jaundice - History of Present Illness Ms. Millan is a very pleasant 67 yo female who is here for generalized weakness and jaundice. She has a history of endometrial cancer, with lung met's , follows with Dr. Durbin. Recently had restaging CT on 07/25/17 which showed borderline enlarged spleen at 13 cm, supraclavicular LN, and lung nodules. Presents to the ED for generalized weakness and severe jaundice. Has a history of cholecystectomy. In the ED, CBC with WBC 13.5, Hgb 12.3, plt 188. LFT's with AST/ALT 400's, total bilirubin 13, alk phos 932, creatinine 0.5. CT AP done which shows moderate intrahepatic and marked extrahepatic biliary duct dilation with recommended ERCP. Also shows fecal impaction, otherwise unchanged. She was admitted for further management. Oncology consulted for her history of endometrial cancer. Unfortunately I do not have access to the clinic EMR at this time. I did get some information from pt and her son however. She was diagnosed a few years ago. Has had a brain lesion a couple years ago that was resected. Had a dural mass a year ago that was resected. Few months ago had supraclavicular LN enlargement and was treated with chemo, with quick improvement of her LN. Has not been on chemo due to generalized weakness for [address] with lung nodules and supraclavicular LN. Otherwise no other areas of obvious met's. She has been having increased generalized weakness for a week now, with increasing jaundice and icterus. Seen by PCP and felt initially to be dehydrated as this was faint. Now however very obvious. Complains of nausea and vomiting. Also constipated. No fevers. Having weight loss for the past 8 months or so. No other complaints. Review of Systems All systems: negative Constitutional: Reports as per HPI Past Medical History Past Medical History: Cancer Additional Past Medical History / Comment(s): Uterine Cancer, tumor on spine. History of Any Multi-Drug Resistant Organisms: None Reported Past Surgical History: Appendectomy, Cholecystectomy, Hysterectomy, Orthopedic Surgery, Tonsillectomy Additional Past Surgical History / Comment(s): medi port, ankle surgery, bowel surgery, tumor removed from spine. Past Anesthesia/Blood Transfusion Reactions: No Reported Reaction Additional Past Anesthesia/Blood Transfusion Reaction / Comm: No history of blood transfusion. Past Psychological History: Anxiety, Depression Additional Psychological History / Comment(s): . Smoking Status: Never smoker Past Alcohol Use History: None Reported Past Drug Use History: None Reported - Past Family History Father Family Medical History: Diabetes Mellitus Sister(s) Family Medical History: Diabetes Mellitus Brother(s) Family Medical History: Diabetes Mellitus Medications and Allergies Home Medications Medication Instructions Recorded Confirmed Type ALPRAZolam [Xanax] 0.5 mg PO BID PRN 04/12/14 08/16/17 History traZODone HCL [Desyrel] 150 mg PO HS 04/12/14 08/16/17 History Aspirin EC [Ecotrin] 325 mg PO DAILY 08/16/17 08/16/17 History Biotin 5 mg PO DAILY 08/16/17 08/16/17 History Cholecalciferol [Vitamin D3] 1,000 unit PO DAILY@1200 08/16/17 08/16/17 History Citalopram Hydrobromide [CeleXA] 10 mg PO BID 08/16/17 08/16/17 History Docusate [Colace] 100 mg PO BID 08/16/17 08/16/17 History Dronabinol [Marinol] 2.5 mg PO DAILY 08/16/17 08/16/17 History Glucosamine Sulfate 500 mg PO DAILY 08/16/17 08/16/17 History Lidocaine-Prilocaine Cream [Emla 1 applic TOPICAL DAILY PRN 08/16/17 08/16/17 History Cream 2.5%/2.5%] Methocarbamol [Robaxin-750] 1,500 mg PO QID PRN 08/16/17 08/16/17 History Methylphenidate HCl [Ritalin] 10 mg PO BID 08/16/17 08/16/17 History Morphine Sulfate [Morphine Sulfate 30 mg PO Q12H 08/16/17 08/16/17 History ER] Omeprazole 20 mg PO DAILY 08/16/17 08/16/17 History Ondansetron [Zofran] 4 mg PO TID 08/16/17 08/16/17 History Prochlorperazine [Compazine] 10 mg PO DAILY PRN 08/16/17 08/16/17 History Sennosides-Docusate Sodium 2 tab PO BID 08/16/17 08/16/17 History [Senokot-S] Simethicone 80 mg PO DAILY PRN 08/16/17 08/16/17 History oxyCODONE HCL 10 mg PO DAILY@0300 08/16/17 08/16/17 History traMADol HCL [Ultram] 50 mg PO DAILY@1200 PRN 08/16/17 08/16/17 History Allergies Allergy/AdvReac Type Severity Reaction Status Date / Time No Known Allergies Allergy Verified 08/16/17 13:33 Physical Exam Vitals: Vital Signs Temp Pulse Resp BP Pulse Ox 08/16/17 15:30 98 F 78 16 137/70 97 08/16/17 14:26 77 16 144/70 98 08/16/17 13:00 97.2 F L 92 16 117/69 97 Intake and Output 08/16/17 08/16/17 08/16/17 06:59 14:59 22:59 Other: Weight 89.811 kg 89.811 kg Patient Weight 08/17/17 06:59 Weight 89.811 kg Gen.: No acute distress. HEENT: Scleral icterus, mucosa moist, no conjunctival pallor. Neck: Supple. Lymph: Small bilateral cervical lymphadenopathy and left supraclavicular fullness although no obvious supraclavicular lymphadenopathy. Lungs: CTA-B without wheezing. Heart: Regular rate and rhythm without murmurs. Abdomen: Soft with right upper quadrant tenderness, nondistended, positive bowel sounds, no guarding or rigidity. Extremities: No lower extremity edema. Skin: Generalized jaundice. MSK: 4/4 strength in all 4 extremities. Neuro: Alert and oriented 3 without obvious neurologic deficits. Psych: Appropriate affect. Results CBC & Chem 7: 08/16/17 14:20 08/16/17 14:20 Labs: Abnormal Lab Results - Last 24 Hours (Table) 08/16/17 08/16/17 Range/Units 14:20 14:20 WBC 13.5 H (3.8-10.6) k/uL MCV 101.1 H (80.0-100.0) fL MCHC 30.1 L (31.0-37.0) g/dL Lymphocytes # (Manual) 7.56 H (1.0-4.8) k/uL Sodium 134 L (137-145) mmol/L Glucose 106 H (74-99) mg/dL Total Bilirubin 13.2 H (0.2-1.3) mg/dL AST 445 H (14-36) U/L ALT 407 H (9-52) U/L Alkaline Phosphatase 932 H (38-126) U/L Albumin 3.2 L (3.5-5.0) g/dL Amylase <30 L (30-110) U/L Lipase 15 L (23-300) U/L Assessment and Plan Assessment: Endometrial cancer, metastatic Newly found obstructive jaundice Plan: Ms. Millan is a very pleasant 67-year-old female with history of metastatic endometrial cancer who is here for jaundice, found to have obstructive jaundice without obvious evidence of intrahepatic months. At this time I would recommend GI consult and MRCP to further assess underlying etiology of her obstructive jaundice. Unclear if this is due to stone(although had cholecystectomy and seems to be extrinisic obstruction) or possible pancreatic mass or other etiology. This was discussed with the patient and her family and they were agreeable to the plan. All of their questions were answered.
[2017-08-16] MEDS: MORPHINE SULFATE 4 MG/ML SYRINGE IV PRN (18:24)
[2017-08-16 19:02] LABS: Appearance,Urine Cloudy (Clear); Bilirubin,Urine 4+ (Negative); Blood,Urine Negative (Negative); Color,Urine Dark Brown; Glucose,Urine (UA) Negative (Negative); Ketones,Urine Negative (Negative); Leukocyte Esterase,Urine Small (Negative); Mucus,Urine Rare /hpf; Protein,Urine 1+ (Negative); RBC,Urine 8 /hpf (0-5); Squamous Epithelial Cell,Urine 16 /hpf (0-4); WBC,Urine 12 /hpf (0-5)
[2017-08-16 19:07] LABS: Specific Gravity,Urine >1.050 (1.001-1.035)
[2017-08-16] MEDS ORDERED: METHYLPHENIDATE HCL 10 MG TAB PO SCH (21:00)
[2017-08-16] MEDS: traZODone HCL 50 MG TAB PO SCH (21:19)
[2017-08-16] MEDS: ALPRAZolam 0.5 MG TAB PO PRN (21:19)
[2017-08-16] MEDS: SENNOSIDES-DOCUSATE SODIUM 1 EACH TAB PO SCH (21:20)
[2017-08-16] MEDS: MORPHINE SULFATE ER 30 MG TABLET PO SCH (21:20)
[2017-08-16] MEDS: DOCUSATE 100 MG CAP PO SCH (21:21)
[2017-08-16] MEDS: CITALOPRAM HYDROBROMIDE 10 MG TAB PO SCH (21:21)
[2017-08-17] MEDS: MORPHINE SULFATE 4 MG/ML SYRINGE IV PRN (00:08)
--- NOTE | 2017-08-17 08:34 | HP ---
HISTORY AND PHYSICAL DATE OF SERVICE: 08/16/2017 CHIEF COMPLAINTS: Jaundice and yellowish discoloration of the skin. HISTORY OF PRESENT ILLNESS: This 67-year-old woman with a past medical history of multiple medical problems including history of endometrial cancer with lung mets being followed by Dr. Durbin. The patient has presented to [facility] with complaints of yellowish discoloration and the patient was being followed by Dr. Lamar in the outpatient setting. The patient also had other past medical history of cholecystectomy, appendectomy also anxiety, depression as well. On admission, the labs showed bilirubin 13.2, AST 445 and ALT 407, alkaline phosphatase 932 and UA is noted. The white count is elevated at 13.5. The patient underwent a abdominal pelvis CAT scan which showed moderate intrahepatic and marked extrahepatic biliary duct dilatation with no gross pancreatic duct dilatation. Common bile duct stricture or periampullary mass are considered for possible etiology. MRCP or ERCP is recommended at this time. Somewhat heterogeneity to the pancreatic area was also noted. Fecal impaction was noted and suspicious osseous lesion was also noted in the T7 vertebral .Multiple bilateral pulmonary nodules in lung bases compatible with metastasis. There is no history of fever, rigors. No history of headache, loss of consciousness, seizures. PAST MEDICAL HISTORY: Endometrial carcinoma with mets, history of appendectomy, cholecystectomy, hysterectomy, history of anxiety, depression. MEDICATIONS: Medications prior to admission include home medications are: 1. Trazodone 150 mg q.h.s. 2. Ultram 50 mg p.o. daily. 3. Oxycodone 10 mg p.o. daily. 4. Simethicone 80 mg daily p.r.n. 5. Senokot-S 2 tablets p.o. b.i.d. 6. Compazine 10 mg p.o. daily p.r.n. 7. Zofran 4 mg p.o. t.i.d. 8. Omeprazole 20 mg p.o. daily. 9. Morphine sulfate 30 mg p.o. b.i.d. 10.Ritalin 10 mg p.o. b.i.d. 11.Robaxin 750 100 mg p.o. q.i.d. p.r.n. 12.EMLA cream 1 application daily p.r.n. 13.Glucosamine 500 mg p.o. daily. 14.Marinol 2.5 mg p.o. daily. 15.Colace 100 mg p.o. b.i.d. 16.Celexa 10 mg p.o. b.i.d. 17.Vitamin D3, 1000 daily. 18.Biotin 5 mg p.o. daily. 19.Ecotrin 325 mg daily. 20.Xanax 0.5 p.r.n. ALLERGIES: Allergies are none. FAMILY HISTORY: History of diabetes mellitus in the family. SOCIAL HISTORY: No history of smoking. No history of alcohol intake. REVIEW OF SYSTEMS: ENT: No diminished hearing or diminished vision. CARDIOVASCULAR SYSTEM: No angina or palpitations. RESPIRATORY SYSTEM: No cough. GI: As mentioned earlier. : No dysuria. NERVOUS SYSTEM: No numbness or weakness. ALLERGY/IMMUNOLOGY: No history of asthma or hayfever. MUSCULOSKELETAL: As mentioned earlier. HEMATOLOGY/ONCOLOGY: As mentioned earlier. ENDOCRINE: No history of diabetes mellitus or hypothyroidism. CONSTITUTIONAL: As mentioned earlier. DERMATOLOGY: Negative. RHEUMATOLOGY: Negative. PSYCHIATRY: As mentioned earlier. PHYSICAL EXAMINATION: The patient is alert and oriented x3. Pulse is 68, blood pressure 164/94, respiration 18, temperature 97.7, pulse ox 95% on room air. HEENT: Conjunctivae icteric. Oral mucosa icteric. Neck is no jugular venous distention. No carotid bruit. No lymph node enlargement. CARDIOVASCULAR: S1 and S2 muffled. No S3 or S4. RESPIRATORY: Breath sounds diminished at the bases. A few scattered rhonchi and crackles. ABDOMEN: Soft. Mild diffuse distention. Fullness in the epigastrium and tenderness also present. Liver is palpable, tender. Otherwise, no ascites. No other mass palpable. LEGS: No edema, no swelling. NERVOUS SYSTEM: Higher functions as mentioned earlier. Moves all 4 limbs. No focal motor or sensory deficits. LYMPHATICS: No lymphadenopathy of the neck, axillae or groin. SKIN: No ulcer, rash or bleeding. LABS: WBC 13.5, hemoglobin 12.3. Other labs are noted. Bilirubin 13.2. AST is 445, ALT is 407. CAT scan reviewed. ASSESSMENT: 1. Obstructive jaundice with possible common bile duct stricture, rule out extraluminal obstruction. 2. Increased bilirubin. 3. Increased AST ALT. 4. History of endometrial cancer with metastasis. 5. Increased alkaline phosphatase. 6. Increased WBC. 7. History of appendectomy, cholecystectomy. 8. History of anxiety, depression. RECOMMENDATIONS AND DISCUSSION: This 67-year-old woman who presented with multiple complex medical issues, will monitor the patient closely. Continue the current medications. Continue symptomatic treatment. Will initiate the home medications and pain medications. Gastroenterology consultation, Hematology/Oncology consultation. Possible ERCP. Guarded prognosis because of multiple complex medical issues and further recommendations to follow. Prognosis guarded. MMODL / IJN: [id number] / MTDD
[2017-08-17] MEDS ORDERED: NON-FORMULARY DRUG (Biotin [Biotin] 5 MG) PO SCH (09:00)
[2017-08-17] MEDS ORDERED: NON-FORMULARY DRUG (Glucosamine Sulfate 500 MG) PO SCH (09:00)
[2017-08-17] MEDS: DRONABINOL 2.5 MG CAP PO SCH (09:42)
[2017-08-17] MEDS: MORPHINE SULFATE ER 30 MG TABLET PO SCH ×2 (09:42→21:11)
[2017-08-17] MEDS: DOCUSATE 100 MG CAP PO SCH ×2 (09:44→20:59)
[2017-08-17] MEDS: PANTOPRAZOLE 40 MG TABLET PO SCH (09:44)
[2017-08-17] MEDS: CITALOPRAM HYDROBROMIDE 10 MG TAB PO SCH ×2 (09:45→20:59)
[2017-08-17] MEDS: ASPIRIN 325 MG TAB PO SCH (09:49)
[2017-08-17] MEDS: ONDANSETRON 4 MG TAB PO SCH ×3 (09:50→20:59)
[2017-08-17] MEDS: SENNOSIDES-DOCUSATE SODIUM 1 EACH TAB PO SCH ×2 (09:50→20:59)
[2017-08-17] MEDS: CHOLECALCIFEROL 1,000 UNIT TAB PO SCH (09:51)
[2017-08-17] MEDS: METHYLPHENIDATE HCL 10 MG TAB PO SCH ×2 (09:54→17:14)
[2017-08-17 11:01] LABS: HCT 42.1 % (34.0-46.0); HGB 12.9 gm/dL (11.4-16.0); Hypochromasia Moderate; MCH 30.2 pg (25.0-35.0); MCHC 30.6 g/dL (31.0-37.0); MCV 98.7 fL (80.0-100.0); Mean Platelet Volume 6.9; Platelet Count 236 k/uL (150-450); RBC 4.26 m/uL (3.80-5.40); RDW 14.9 % (11.5-15.5); WBC 18.8 k/uL (3.8-10.6)
[2017-08-17 11:17] LABS: ALT 411 U/L (9-52); AST 464 U/L (14-36); Albumin 3.2 g/dL (3.5-5.0); Alkaline Phosphatase 953 U/L (38-126); Anion Gap 15 mmol/L; Blood Urea Nitrogen 11 mg/dL (7-17); Calcium 9.3 mg/dL (8.4-10.2); Carbon Dioxide 22 mmol/L (22-30); Chloride 97 mmol/L (98-107); Glucose 156 mg/dL (74-99); Potassium 4.4 mmol/L (3.5-5.1); Sodium 134 mmol/L (137-145); Total Bilirubin 14.5 mg/dL (0.2-1.3)
[2017-08-17 11:56] LABS: Lymphocytes # (M) 10.34 k/uL (1.0-4.8); Monocytes # (M) 0.56 k/uL (0-1.0); Neutrophils % (M) 42 %; Nucleated Red Blood Cells 0 /100 WBC (0-0); Total Cells Counted 100
[2017-08-17 11:57] LABS: Anisocytosis (M) Present; Poikilocytosis (M) Present; Spherocytes Present; Target Cells Present
[2017-08-17] MEDS ORDERED: traMADol 50 MG TAB PO PRN (12:00)
--- NOTE | 2017-08-17 14:01 | CONS ---
CONSULTATION DATE OF SERVICE: 08/17/2017 REQUESTING PHYSICIAN: Dr. Octavio Lamar. REASON FOR CONSULTATION: Jaundice and elevated LFTs. HISTORY OF PRESENT ILLNESS: The patient is a 67-year-old pleasant white female with history of uterine cancer diagnosed in 2011, subsequently has metastasis to the lungs, presented to the hospital with some abdominal discomfort and yellowish discoloration of skin for the last one month duration. She has some vague pain in the right upper quadrant area as well as in the epigastric area on and off for the last one month duration with somewhat decreased appetite. Came to the ER with and she had a CT of the abdomen and pelvis done and she was noted to have dilated intra and extrahepatic biliary ducts with no gross pancreatic duct dilation and hence we are consulted for the ERCP. Recent CT scan did not show any evidence of liver lesions. Her labs showed a T bilirubin of 13.2, AST was 445, ALT is 407, and alkaline phosphatase was 932. She also was noted to have multiple bilateral pulmonary nodules on the CAT scan compatible with pulmonary metastasis. She received chemotherapy about 6 months ago and finished 4 cycles, the last one ended 2 months ago. She follows with Dr. Durbin on an outpatient basis. PAST MEDICAL HISTORY: Significant for endometrial carcinoma with metastasis originally diagnosed in 2011, history of anxiety, depression, hypertension. MEDICATIONS: Medications at home include Ultram, trazodone, oxycodone, simethicone, Compazine, Zofran, omeprazole, morphine, Ritalin, Robaxin, Marinol, Celexa, Xanax, Ecotrin, biotin. ALLERGIES: None. SOCIAL HISTORY: No smoking or alcohol use. FAMILY HISTORY: Diabetes mellitus in mother. REVIEW OF SYSTEMS: CARDIOPULMONARY: No chest pain, shortness of breath. GENITOURINARY: No dysuria or hematuria. MUSCULOSKELETAL: Unremarkable. SKIN: Unremarkable. ENDOCRINE: Unremarkable. PSYCHIATRIC: Unremarkable. NEUROLOGY: Unremarkable. ENT/VISION: Unremarkable. CONSTITUTIONAL: Weight loss of 20 pounds. No fever, chills, night sweats. PAST SURGICAL HISTORY: Appendectomy, cholecystectomy, hysterectomy. PHYSICAL EXAMINATION: On physical examination, she appears comfortable, in no apparent distress. Vital signs are stable. Blood pressure is 174/81. Pulse rate 68. Temperature 98. HEENT EXAMINATION: Unremarkable. Conjunctivae pink. Sclerae deeply icteric. Oral cavity no lesions. NECK: No JVD or lymph node enlargement. Chest was clear to auscultation. HEART: Regular rate and rhythm. Abdomen is soft. There was mildly diffuse tenderness. Liver and spleen were not palpable. EXTREMITIES: No pedal edema. SKIN: No rashes. NEURO: She is alert and oriented x3. No focal deficits. LABS: WBC 18.8, hemoglobin 12.8, platelets normal. T-bili is 14.5, AST 464, ALT 411, alk phos 953. PT, INR was not done. Amylase and lipase are normal. CT of the abdomen and pelvis done in the emergency room yesterday showed evidence of moderate intrahepatic and marked extrahepatic biliary ductal dilatation. No pancreatic masses noted. No focal hepatic lesions identified. There was inflammatory changes noted in the carlton hepatis and in the descending duodenum. IMPRESSION: This is a lady who presents with some vague abdominal discomfort for the last one month duration associated with significant jaundice and CAT scan of the abdomen showing moderate to severe intra and extra hepatic biliary ductal dilatation. She has history of remote cholecystectomy in 1998 for symptomatic gallstones. She does have history of metastatic uterine cancer and recent CAT scan showed multiple metastasis in the lungs. She was on chemotherapy that ended about 2 months ago. Most likely we are dealing with an extra hepatic biliary obstruction related to malignancy. RECOMMENDATIONS: A lengthy discussion with the patient as well as the family at the bedside. At this time, we will proceed with an ERCP tomorrow. I discussed with them the risks, benefits, and complications of the procedure and she is agreeable to it. Thank you for this consultation. MMODL / IJN: [id number] /
[2017-08-17 14:16] LABS: INR 1.6 (<1.2)
--- NOTE | 2017-08-17 15:24 | XR ---
EXAMINATION TYPE: XR chest 1V confirm line [facility] DATE OF EXAM: 08/17/2017 COMPARISON: 08/16/2017 INDICATION: Unable to withdraw report TECHNIQUE: Single frontal view of the chest is obtained. FINDINGS: The heart size is normal. The pulmonary vasculature is normal. There is some linear opacities at the left base may represent some increasing plate atelectasis. Port is present on the right. Tip is in the region of the superior vena cava which is unchanged in po sition comparison. IMPRESSION: 1. Increasing plate atelectasis left base. 2. Stable appearance of the port, tip is in the superior vena cava.
[2017-08-17] MEDS: MORPHINE ORAL SOLN 10 MG/5 ML CUP PO PRN ×2 (15:56→21:11)
--- NOTE | 2017-08-17 17:43 | PN ---
PROGRESS NOTE DATE OF SERVICE: 08/17/2017 This 67-year-old woman is admitted with jaundice and obstructive jaundice and yellowish discoloration with hyperbilirubinemia. Patient being closely monitored at this time. Abdomen and pelvis CAT scan was noted and Dr. Angulo has seen the patient and recommended ERCP tomorrow. The possibility of extrahepatic biliary related to malignancy is being considered by Dr. Angulo. PAST MEDICAL HISTORY: Reviewed. REVIEW OF SYSTEMS: CARDIOVASCULAR: No angina or palpitations. RESPIRATORY: as mentioned earlier. GI: As mentioned earlier. : As mentioned earlier. CENTRAL NERVOUS SYSTEM: No numbness, weakness. MEDS: Current medications are reviewed include: 1. Xanax 0.5 p.o. b.i.d. 2. Aspirin 320 mg. 3. Vitamin D 3000. 4. Celexa 10 mg p.o. daily. 7. EMLA cream. 8. Zofran 15 mg p.o. q.i.d. PHYSICAL EXAM: Patient is alert and oriented x3. Pulse 69, blood pressure 137/87, respiration 16, temperature 98.7, pulse ox 94% on room air. HEENT is conjunctivae normal. Neck : No jugular venous distention. Cardiovascular: S1, S2 muffled. Respiratory: Breath sounds diminished in the bases. A few scattered rhonchi. No crackles. ABDOMEN: Soft, mild diffuse distention. Nontender. No mass palpable. Legs no edema and no swelling. Central nervous system: Higher functions as mentioned earlier. No focal deficits. Moves all four extremities. Lymphatics: No lymph nodes palpable in the neck, axillae or groin. SKIN: No ulcer, rash or bleeding. LABS: WBC 18.8, INR 1.2, sodium 134, otherwise LFTs bilirubin 14.5 showing increasing trend. ASSESSMENT: 1. Obstructive jaundice with possible CBD stricture, rule out extra hepatic biliary obstruction, possibly malignancy or CBD stones. 2. Increased bilirubin. 3. Increased AST /ALT. 4. History of endometrial carcinoma with metastasis. 5. Increased alkaline phosphatase. 6. Increased WBC. 7. History of appendectomy, cholecystectomy. 8. History of anxiety/depression. RECOMMENDATIONS AND DISCUSSION: In this 67-year-old woman who presented with multiple complex medical issues, we will monitor the patient closely. Continue the current medications. Repeat labs. Symptomatic treatment provided. ERCP. Prognosis guarded because of above mentioned multiple complex medical issues and further recommendations to follow. MMLAUREL / IJN: [id number] / ABRAHAM
[2017-08-17] MEDS: METHOCARBAMOL 750 MG TAB PO PRN (18:48)
[2017-08-17] MEDS: traZODone HCL 50 MG TAB PO SCH (20:59)
[2017-08-17] MEDS: ONDANSETRON 4 MG/2 ML VIAL IVP PRN (21:27)
[2017-08-18] MEDS: MORPHINE ORAL SOLN 10 MG/5 ML CUP PO PRN ×3 (02:54→17:44)
[2017-08-18] MEDS ORDERED: LEVOFLOXACIN 500MG-D5W PMX 500 MG in DEXTROSE/WATER 1 100ML.BAG IVPB STA (06:30)
[2017-08-18] MEDS ORDERED: INDOMETHACIN 50MG SUPPOSITORY RECTAL ONE (06:55)
[2017-08-18] MEDS ORDERED: IV FLUID CONTINUATION 1,000 ML IV ONE (07:15)
--- NOTE | 2017-08-18 07:35 | P.PCN ---
Date of Procedure: 08/18/17 Procedure(s) Performed: Brief history: Patient is a 67 year-old pleasant lady scheduled for an ERCP as part of evaluation of abdominal pain, jaundice and elevated serum transaminases for the last 2 weeks duration. She was diagnosed with metastatic uterine cancer and had chemotherapy that ended about 2 months ago. Because of the jaundice she had CT of abdomen and pelvis done that showed dilated intra-and extrahepatic biliary system but no obvious mass identified. There was some thickening of the duodenum identified. Because of the obstructive jaundice she is scheduled for an ERCP for biliary drainage. Procedure performed: Attempted ERCP/EGD with biopsy Preoperative diagnoses: Obstructive jaundice/history of metastatic uterine cancer IV sedation per anesthesia: Procedure: After informed consent was obtained from the patient and after the risks benefits and complications including bleeding perforation and pancreatitis explained in detail the patient was brought into the endoscopy unit. The patient was placed in prone position and IV conscious sedation was administered by anesthesia under continuous monitoring. The Olympus side-viewing duodenoscope was then inserted into the mouth and esophagus intubated without any difficulty. The scope was gradually advanced into the stomach and duodenum. The scope could not be advanced into the second part of the duodenum because of an ulcerated circumferential mass with duodenal stricture. Despite multiple attempts I was not able to advance the scope beyond the stricture. At this time the scope was removed and the forward-viewing upper endoscopy was then inserted in mouth and esophagus intubated without any difficulty and was gradually advanced into the stomach. There was large amount of retained solid food noted in the stomach secondary to gastric outlet outlet obstruction. The pylorus was patent. Scope was advanced into the duodenal bulb. Mucosa in this area was very friable. The scope was gently advanced into the second part of the duodenum there was an ulcerated mass that was circumferential with significant luminal narrowing which did not allow the passage of the scope. At this time multiple biopsies were done from the ulcerated mass. The major papilla could not be identified. Hence ERCP could not be performed. The scope was withdrawn to the stomach. Large amount of retained food noted in the fundus and body of the stomach. The esophagus appeared normal. Patient tolerated the procedure well. Impression: 1. 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 Ampullary orifice could not be visualized and hence ERCP could not be performed. 3. Retained food in the stomach suggestive of gastric outlet obstruction. Recommendations: Patient will be transferred to the floor. We will discuss with her and the family regarding percutaneous biliary drainage.
[2017-08-18 08:46] LABS: HCT 38.3 % (34.0-46.0); HGB 11.7 gm/dL (11.4-16.0); Hypochromasia Moderate; MCH 30.1 pg (25.0-35.0); MCHC 30.6 g/dL (31.0-37.0); MCV 98.5 fL (80.0-100.0); Mean Platelet Volume 6.9; Platelet Count 185 k/uL (150-450); RBC 3.89 m/uL (3.80-5.40); RDW 15.1 % (11.5-15.5); WBC 11.6 k/uL (3.8-10.6)
[2017-08-18 09:08] LABS: ALT 340 U/L (9-52); AST 365 U/L (14-36); Albumin 2.8 g/dL (3.5-5.0); Alkaline Phosphatase 824 U/L (38-126); Anion Gap 8 mmol/L; Blood Urea Nitrogen 11 mg/dL (7-17); Calcium 8.8 mg/dL (8.4-10.2); Carbon Dioxide 29 mmol/L (22-30); Chloride 96 mmol/L (98-107); Glucose 110 mg/dL (74-99); Potassium 4.2 mmol/L (3.5-5.1); Sodium 133 mmol/L (137-145); Total Bilirubin 13.8 mg/dL (0.2-1.3)
[2017-08-18] MEDS: DOCUSATE 100 MG CAP PO SCH ×2 (09:16→20:50)
[2017-08-18] MEDS: ASPIRIN 325 MG TAB PO SCH (09:16)
[2017-08-18] MEDS: ONDANSETRON 4 MG TAB PO SCH ×4 (09:16→20:51)
[2017-08-18] MEDS: MORPHINE SULFATE ER 30 MG TABLET PO SCH ×2 (09:16→20:49)
[2017-08-18] MEDS: DRONABINOL 2.5 MG CAP PO SCH (09:17)
[2017-08-18] MEDS: PANTOPRAZOLE 40 MG TABLET PO SCH (09:18)
[2017-08-18] MEDS: CITALOPRAM HYDROBROMIDE 10 MG TAB PO SCH ×2 (09:18→20:50)
[2017-08-18] MEDS: SENNOSIDES-DOCUSATE SODIUM 1 EACH TAB PO SCH ×2 (09:19→20:49)
[2017-08-18] MEDS: LACTATED RINGERS 1,000 ML IV SCH ×2 (09:57→20:50)
[2017-08-18 11:15] LABS: Metamyelocytes # (M) 0.12 k/uL (0); Metamyelocytes % 1 %; Nucleated Red Blood Cells 0 /100 WBC (0-0)
[2017-08-18 11:16] LABS: Lymphocytes # (M) 6.03 k/uL (1.0-4.8); Neutrophils # (M) 4.99 k/uL (1.3-7.7); Neutrophils % (M) 43 %
[2017-08-18 11:17] LABS: Monocytes # (M) 0.46 k/uL (0-1.0); Myelocytes # (M) 0.12 k/uL (0); Myelocytes % 1 %; Target Cells Present; Total Cells Counted 200
[2017-08-18 11:18] LABS: Anisocytosis (M) Present; Poikilocytosis (M) Present
[2017-08-18] MEDS: ONDANSETRON 4 MG/2 ML VIAL IVP PRN (11:49)
[2017-08-18] MEDS: CHOLECALCIFEROL 1,000 UNIT TAB PO SCH (11:53)
--- NOTE | 2017-08-18 17:20 | P.PN ---
Subjective Progress Note Date: 08/18/17 Principal diagnosis: Jaundice, Hx uterine malignancy Pt seen today in follow up after EGD, she is alert and oriented x 3, she states back pain, 11/29, she denies nausea at this time,no SOB or need to go to the bathroom. Objective - Vital Signs Vital signs: Vital Signs Temp 97.8 F 08/18/17 14:14 Pulse 68 08/18/17 14:14 Resp 16 08/18/17 14:14 BP 172/79 08/18/17 14:14 Pulse Ox 92 L 08/18/17 14:14 Intake & Output 08/17/17 08/18/17 08/18/17 18:59 06:59 18:59 Intake Total 500 250 Balance 500 250 Intake: IV 250 Levofloxacin 500Mg-D5w 100 Pmx 500 mg In Dextrose/ Water 1 100ml.bag @ 100 mls/hr IVPB ONCE STA Rx#: [id number] Intake, IV Titration 250 Amount Lactated Ringers 1,000 ml 250 @ 20 mls/hr IV .Q24H LAUREL Rx#:[id number] Oral 250 Other: Voiding Method Toilet Toilet Toilet # Voids 2 1 1 - Constitutional General appearance: Present: cooperative, obese - EENT Eyes: Present: scleral icterus - Respiratory Respiratory: bilateral: CTA - Cardiovascular Heart sounds: normal: S1, S2 - Gastrointestinal General gastrointestinal: Present: distended - Integumentary Integumentary: Present: jaundiced - Neurologic Neurologic: Present: CNII-XII intact - Musculoskeletal Musculoskeletal: Present: generalized weakness, strength equal bilaterally - Psychiatric Psychiatric: Present: A&O x's 3, appropriate affect, intact judgment & insight - Labs CBC & Chem 7: 08/18/17 08:26 08/18/17 08:26 Labs: Abnormal Lab Results - Last 24 Hours (Table) 08/18/17 08/18/17 Range/Units 08:26 08:26 WBC 11.6 H (3.8-10.6) k/uL MCHC 30.6 L (31.0-37.0) g/dL Lymphocytes # (Manual) 6.03 H (1.0-4.8) k/uL Metamyelocytes # (Man) 0.12 H (0) k/uL Myelocytes # (Manual) 0.12 H (0) k/uL Sodium 133 L (137-145) mmol/L Chloride 96 L (98-107) mmol/L Glucose 110 H (74-99) mg/dL Total Bilirubin 13.8 H (0.2-1.3) mg/dL AST 365 H (14-36) U/L ALT 340 H (9-52) U/L Alkaline Phosphatase 824 H (38-126) U/L Total Protein 6.0 L (6.3-8.2) g/dL Albumin 2.8 L (3.5-5.0) g/dL Assessment and Plan (1) Duodenal mass Narrative/Plan: Case reviewed with [facility]. EGD with Dr. Angulo revealed an obstructing mass in duodenum, biopsies done but, ERCP could not be performed. We discussed options for care: 1) Percutaneous biliary drain to relieve obstruction symptoms-this would be palliative in nature irregardless if pt wants to pursue treatment or not. 2) Feeding options. Open J-tube was explained to me as the only option for feeding due to location of obstruction. Parenteral nutrition not recommended as it is metabolized by the liver which is severely compromised at this time. I spoke with pt son who is POA, plan is for meeting in AM to discuss what has been found and what treatment options there are. Will update plan of care from Oncology standpoint tomorrow. Current Visit: Yes Status: Acute Priority: High Code(s): K31.89 - OTHER DISEASES OF STOMACH AND DUODENUM SNOMED Code(s): 749543148 (2) History of uterine cancer Current Visit: Yes Status: Acute Priority: High Code(s): Z85.42 - PERSONAL HISTORY OF MALIGNANT NEOPLASM OF OTH PRT UTERUS SNOMED Code(s): 474397316 (3) Jaundice Narrative/Plan: Secondary to obstruction. Will be recommending percutaneous drain to pt and family just for palliative purposes in AM. Current Visit: Yes Status: Acute Priority: High Code(s): R17 - UNSPECIFIED JAUNDICE SNOMED Code(s): 72304080
[2017-08-18] MEDS: ALPRAZolam 0.5 MG TAB PO PRN (20:52)
--- NOTE | 2017-08-18 21:53 | PN ---
PROGRESS NOTE DATE OF SERVICE: 08/18/2017 This 67-year-old woman was admitted with obstructive jaundice had ERCP today by Dr. Angulo. The ERCP showed significant large ulcerated mass in the duodenal stricture involving 2nd part of the duodenum, status post multiple biopsies were done and ampullary orifice could not be visualized and hence ERCP could not be visualized and retained food in the stomach showed gastric outlet obstruction was also noted. The patient is complaining of abdominal distention and the LFTs elevated and Hematology/Oncology is also following the patient closely and oncology discussed options again such as percutaneous biliary drainage of the biliary obstruction, possibly palliative in nature and feeding options open J-tube. Family meeting is being planned for tomorrow. PAST MEDICAL HISTORY: Reviewed. REVIEW OF SYSTEMS: Cardiovascular: No angina. Respiration: As mentioned earlier. GI as mentioned earlier. no symptoms. Central nervous system: No focal deficits. MEDICATIONS ARE: Reviewed and include: 1. Xanax 0.5 p.o. b.i.d. 2. Aspirin 320 mg daily. 3. Vitamin D3 1000 daily. 4. Celexa 10 mg b.i.d. 5. Colace 100 mg p.o. b.i.d. 6. Marinol 2.5 mg daily. 7. Lactated Ringer's. 8. EMLA cream. 9. Robaxin 59 mg p.o. q.i.d. 10.MS Contin 30 mg p.o. b.i.d. 11.Narcan 0.2 q.2h p.r.n. 12.Zofran 4 mg q.8h p.r.n. 13.Oxy IR 30 mg p.o. daily. 14.Protonix 40 mg p.o. daily. 15.Compazine 10 mg p.o. daily. 16.Mylicon. 17.Ultram. 18.Desyrel. PHYSICAL EXAM: Patient is alert, oriented x3. Pulse 67. Blood pressure 175/82, respirations 16, temperature 97.6, pulse ox 94% on room air. HEENT: Conjunctivae icteric. Neck: No jugular venous distention. Cardiovascular: S1, S2 muffled. Respiratory: Breath sounds diminished in the bases. A few scattered rhonchi and crackles. Abdomen is soft. Mild diffuse distention. Mild diffuse tenderness especially in the epigastrium present. Legs no edema. No swelling. NERVOUS SYSTEM: Higher functions as mentioned: No focal deficits. Moves all four extremities. Lymphatics: No lymph nodes palpable in the neck, axillae or groin. Skin: No ulcer, rash or bleeding. LABS: WBC 11.2, hemoglobin 11.7, and sodium is 133. Total bilirubin 13.8, AST 365 and ALT 340, alkaline phosphatase is 824, albumin is 2.8. ASSESSMENT: 1. Obstructive jaundice with possible CBD obstruction secondary to possibly metastatic lesion and large ulcerated mass with duodenal history involving the second part of the duodenum. 2. Increased bilirubin and hyperbilirubinemia. 3. Increased AST/ALT. 4. History of endometrial carcinoma with metastasis. 5. Increased alkaline phosphatase. 6. Increased WBC. 7. History of appendectomy, cholecystectomy, history of anxiety, depression. 8. FULL CODE. RECOMMENDATIONS AND DISCUSSION: In this 67 -year-old woman who presented with multiple complex medical issues, we will monitor the patient closely, continue the current medications, continue management and symptomatic treatment. I would recommend repeat labs in the morning as mentioned as detailed above, the patient's options are very limited. Prognosis remains extremely guarded. Discussed with the patient at length and we will follow the patient closely with Hematology/Oncology. After the family meeting, regarding the further course of action and options as detailed above. Once again, the prognosis guarded. Further recommendations to follow. MMODL / IJN: [id number] /
[2017-08-18] MEDS: traZODone HCL 50 MG TAB PO SCH ×2 (22:32→23:17)
[2017-08-18] MEDS: METHOCARBAMOL 750 MG TAB PO PRN (23:36)
[2017-08-19] MEDS: MORPHINE ORAL SOLN 10 MG/5 ML CUP PO PRN ×3 (01:36→16:19)
[2017-08-19] MEDS: ONDANSETRON 4 MG/2 ML VIAL IVP PRN (01:37)
[2017-08-19 08:12] LABS: HCT 38.3 % (34.0-46.0); HGB 11.9 gm/dL (11.4-16.0); Hypochromasia Slight; MCH 30.3 pg (25.0-35.0); MCV 97.5 fL (80.0-100.0); Mean Platelet Volume 7.3; Platelet Count 188 k/uL (150-450); RBC 3.93 m/uL (3.80-5.40); RDW 15.2 % (11.5-15.5); WBC 13.1 k/uL (3.8-10.6)
[2017-08-19 08:15] LABS: ALT 310 U/L (9-52); AST 298 U/L (14-36); Albumin 2.8 g/dL (3.5-5.0); Alkaline Phosphatase 890 U/L (38-126); Anion Gap 11 mmol/L; Blood Urea Nitrogen 11 mg/dL (7-17); Calcium 8.9 mg/dL (8.4-10.2); Carbon Dioxide 27 mmol/L (22-30); Chloride 94 mmol/L (98-107); Glucose 101 mg/dL (74-99); Potassium 4.2 mmol/L (3.5-5.1); Sodium 132 mmol/L (137-145); Total Protein 6.3 g/dL (6.3-8.2)
[2017-08-19 08:23] LABS: Total Bilirubin 16.5 mg/dL (0.2-1.3)
[2017-08-19] MEDS: ASPIRIN 325 MG TAB PO SCH (10:12)
[2017-08-19] MEDS: ONDANSETRON 4 MG TAB PO SCH ×3 (10:12→21:49)
[2017-08-19] MEDS: SENNOSIDES-DOCUSATE SODIUM 1 EACH TAB PO SCH ×2 (10:12→20:14)
[2017-08-19] MEDS: CITALOPRAM HYDROBROMIDE 10 MG TAB PO SCH ×2 (10:13→20:14)
[2017-08-19] MEDS: DRONABINOL 2.5 MG CAP PO SCH (10:14)
[2017-08-19] MEDS: DOCUSATE 100 MG CAP PO SCH ×2 (10:14→20:15)
[2017-08-19] MEDS: MORPHINE SULFATE ER 30 MG TABLET PO SCH ×2 (10:14→20:14)
[2017-08-19] MEDS: PANTOPRAZOLE 40 MG TABLET PO SCH (10:15)
[2017-08-19 10:28] LABS: Lymphocytes # (M) 7.47 k/uL (1.0-4.8); Monocytes # (M) 0.52 k/uL (0-1.0); Neutrophils # (M) 5.24 k/uL (1.3-7.7); Neutrophils % (M) 40 %; Nucleated Red Blood Cells 0 /100 WBC (0-0); Total Cells Counted 200
[2017-08-19 10:29] LABS: Anisocytosis (M) Present; Poikilocytosis (M) Present; Spherocytes Present
--- NOTE | 2017-08-19 10:42 | P.PN ---
Subjective Progress Note Date: 08/19/17 Principal diagnosis: Obstructive jaundice 67-year-old female history of metastatic uterine carcinoma, status post unsuccessful ERCP evaluation yesterday morning with findings of partial obstructing duodenal mass impeding advancement of scope into the ampulla as well as causing a partial gastric outlet obstruction. Total bilirubin increased to 16.5 today. Family meeting was held this morning with oncology service family and patient requesting percutaneous biliary drain placement. INR 1.6 2 days ago. Objective - Vital Signs Vital signs: Vital Signs Temp 97.5 F L 08/18/17 23:00 Pulse 64 08/18/17 23:00 Resp 16 08/18/17 23:00 BP 146/77 08/18/17 23:00 Pulse Ox 95 08/18/17 23:00 Intake & Output 08/18/17 08/19/17 08/19/17 18:59 06:59 18:59 Intake Total 250 400 Balance 250 400 Intake: IV 250 Levofloxacin 500Mg-D5w 100 Pmx 500 mg In Dextrose/ Water 1 100ml.bag @ 100 mls/hr IVPB ONCE STA Rx#: [id number] Oral 400 Other: Voiding Method Toilet Toilet # Voids 1 1 - Exam General appearance: The patient is alert, oriented, in no acute distress. Visibly jaundice HET: Head is normocephalic and atraumatic. Pupils are equal and reactive. Sclerae icterus. Oropharynx is clear without lesions. Neck: Supple without lymphadenopathy. Trachea midline. Heart: S1 S2. Regular rate and rhythm. Lungs: No crackles or wheezes are heard. Abdomen: Soft, mild midepigastric tenderness, nondistended with bowel sounds. No peritoneal signs. No palpable organomegaly or masses. Extremities: Normal skin color and turgor. No cyanosis, rash, ulceration, clubbing, or edema. Radial and pedal pulses are 2/4 bilaterally. Neurological: No focal deficits. Strength and sensation are grossly intact. - Labs CBC & Chem 7: 08/19/17 07:05 08/19/17 07:05 Labs: Abnormal Lab Results - Last 24 Hours (Table) 08/18/17 08/18/17 08/19/17 Range/Units 08:26 08:26 07:05 WBC 13.1 H (3.8-10.6) k/uL Lymphocytes # (Manual) 6.03 H (1.0-4.8) k/uL Metamyelocytes # (Man) 0.12 H (0) k/uL Myelocytes # (Manual) 0.12 H (0) k/uL Sodium 133 L (137-145) mmol/L Chloride 96 L (98-107) mmol/L Glucose 110 H (74-99) mg/dL Total Bilirubin 13.8 H (0.2-1.3) mg/dL AST 365 H (14-36) U/L ALT 340 H (9-52) U/L Alkaline Phosphatase 824 H (38-126) U/L Total Protein 6.0 L (6.3-8.2) g/dL Albumin 2.8 L (3.5-5.0) g/dL 08/19/17 Range/Units 07:05 WBC (3.8-10.6) k/uL Lymphocytes # (Manual) (1.0-4.8) k/uL Metamyelocytes # (Man) (0) k/uL Myelocytes # (Manual) (0) k/uL Sodium 132 L (137-145) mmol/L Chloride 94 L (98-107) mmol/L Glucose 101 H (74-99) mg/dL Total Bilirubin 16.5 H* (0.2-1.3) mg/dL AST 298 H (14-36) U/L ALT 310 H (9-52) U/L Alkaline Phosphatase 890 H (38-126) U/L Total Protein (6.3-8.2) g/dL Albumin 2.8 L (3.5-5.0) g/dL Assessment and Plan (1) Obstructive jaundice Current Visit: Yes Status: Acute Code(s): K83.8 - OTHER SPECIFIED DISEASES OF BILIARY TRACT SNOMED Code(s): 90503989 (2) Partial gastric outlet obstruction Current Visit: Yes Status: Acute Code(s): K31.1 - ADULT HYPERTROPHIC PYLORIC STENOSIS SNOMED Code(s): 389367909 (3) Duodenal mass Current Visit: Yes Status: Acute Priority: High Code(s): K31.89 - OTHER DISEASES OF STOMACH AND DUODENUM SNOMED Code(s): 245345580 (4) History of uterine cancer Current Visit: Yes Status: Acute Priority: High Code(s): Z85.42 - PERSONAL HISTORY OF MALIGNANT NEOPLASM OF OTH PRT UTERUS SNOMED Code(s): 340815283 (5) Coagulopathy Current Visit: Yes Status: Acute Code(s): D68.9 - COAGULATION DEFECT, UNSPECIFIED SNOMED Code(s): 71431919 Plan: 1. Percutaneous biliary drain placement requested with interventional radiology ; possible placement today. 2. Repeat PT/INR today. 3. Recommend protein shake nutrition supplementation for now. Recommend surgical consultation if enteral feeding is requested by patient/family for open /laparoscopic placement of feeding tube. Assessment and plan a care discussed with Dr. Angulo
[2017-08-19 10:45] LABS: INR 1.7 (<1.2); Prothrombin Time 15.8 sec (9.0-12.0)
[2017-08-19] MEDS: METHOCARBAMOL 750 MG TAB PO PRN ×2 (10:58→19:19)
[2017-08-19] MEDS: CHOLECALCIFEROL 1,000 UNIT TAB PO SCH (12:58)
--- NOTE | 2017-08-19 18:06 | PN ---
PROGRESS NOTE DATE OF SERVICE: 08/19/2017 This 67-year-old woman was admitted with hepatic biliary obstruction, had EGD and ERCP could not be completed and the patient is being scheduled for percutaneous drainage by radiology. No chest pain. No palpitations. No fever. PHYSICAL EXAM: Patient is jaundice. Alert, oriented x3. Pulse 67, blood pressure 143/82, respirations 16, temperature 98 degrees, pulse ox 94% on room air. Skin is jaundice. Oral mucosa moist. Neck is no jugular venous distention. No carotid bruit. No lymph node enlargement. Cardiovascular systems: S1, S2 muffled. Respirations: Breath sounds diminished in the bases. A few scattered rhonchi and crackles. ABDOMEN: Soft. Mild diffuse tenderness in the right upper quadrant. Hepatomegaly present. Nervous system: No focal deficits. LAB STUDIES: WBC 13.1. INR is 1.7 and total bilirubin 16.5. ASSESSMENT: 1. Obstructive jaundice with possible CBD obstruction secondary to possibly metastatic lesion large ulcerated mass in the duodenum involving the 2nd part of the duodenum. 2. Increased bilirubin, hyperbilirubinemia extra hepatic biliary obstruction. 3. Increased AST and ALT. 4. Coagulopathy secondary to liver METS. 5. History of endometrial carcinoma with metastasis. 6. Increased alkaline phosphatase. 7. Increased WBC. 8. History of appendectomy, cholecystectomy. 9. History of anxiety, depression. 10.FULL CODE. RECOMMENDATIONS AND DISCUSSION: I recommend to continue current management and symptomatic treatment. Continue with percutaneous drainage. We will recommended vitamin K. continue to monitor. Guarded prognosis. Further recommendations to follow. MMODL / IJN: [id number] / [facility]
[2017-08-19] MEDS: PHYTONADIONE ORAL 5 MG/5 ML ORAL.SYRG PO SCH (19:18)
--- NOTE | 2017-08-19 19:58 | P.PN ---
Subjective Progress Note Date: 08/19/17 Principal diagnosis: Jaundice, Hx uterine malignancy Pt seen with 3 sons at bedside, family meeting. Pt states better pain control after adjustments yesterday, she is tired but does not feel confused, she is tolerated chicken broth this AM without vomiting. Objective - Vital Signs Vital signs: Vital Signs Temp 98 F 08/19/17 15:00 Pulse 67 08/19/17 15:00 Resp 16 08/19/17 15:00 BP 142/84 08/19/17 15:00 Pulse Ox 95 08/19/17 15:00 Intake & Output 08/19/17 08/19/17 08/20/17 06:59 18:59 06:59 Intake Total 400 Balance 400 Weight 89.811 kg Intake: Oral 400 Other: Voiding Method Toilet Toilet # Voids 1 2 - Constitutional General appearance: Present: no acute distress, obese - EENT Eyes: Present: scleral icterus - Respiratory Respiratory: bilateral: CTA - Cardiovascular Heart sounds: normal: S1, S2 - Integumentary Integumentary: Present: jaundiced - Musculoskeletal Musculoskeletal: Present: generalized weakness - Psychiatric Psychiatric: Present: A&O x's 3, appropriate affect, intact judgment & insight - Labs CBC & Chem 7: 08/19/17 07:05 08/19/17 07:05 Labs: Abnormal Lab Results - Last 24 Hours (Table) 08/19/17 08/19/17 08/19/17 Range/Units 07:05 07:05 10:03 WBC 13.1 H (3.8-10.6) k/uL Lymphocytes # (Manual) 7.47 H (1.0-4.8) k/uL PT 15.8 H (9.0-12.0) sec INR 1.7 H (<1.2) Sodium 132 L (137-145) mmol/L Chloride 94 L (98-107) mmol/L Glucose 101 H (74-99) mg/dL Total Bilirubin 16.5 H* (0.2-1.3) mg/dL AST 298 H (14-36) U/L ALT 310 H (9-52) U/L Alkaline Phosphatase 890 H (38-126) U/L Albumin 2.8 L (3.5-5.0) g/dL Assessment and Plan (1) Duodenal mass Current Visit: Yes Status: Acute Priority: High Code(s): K31.89 - OTHER DISEASES OF STOMACH AND DUODENUM SNOMED Code(s): 728667672 (2) History of uterine cancer Current Visit: Yes Status: Acute Priority: High Code(s): Z85.42 - PERSONAL HISTORY OF MALIGNANT NEOPLASM OF OTH PRT UTERUS SNOMED Code(s): 036094115 (3) Jaundice Current Visit: Yes Status: Acute Priority: High Code(s): R17 - UNSPECIFIED JAUNDICE SNOMED Code(s): 40037092 Plan: >30 min was spent counseling and coordinating care We discussed Dr. Angulo's findings on EGD, the inability to pass scope past a mass in the duodenum and that the finding most likely represents cancer. We discussed strong recommendation for percutaneous biliary drain as this will provide relief of jaundice and possibly some of the discomfort. Pt and her sons agreed to proceed, did speak with GI BREAD SUPERVISOR who did discuss procedure further and will coordinate that procedure We then discussed the option of feeding either orally with liquids only or J- tube insertion. We reviewed that to treat cancer (which is suspected but final path was not reported yet) that treatment would be with cytotoxic agent. Pt questioned her ability to tolerate chemotherapy which is concerning. We touched on the option of not pursuing treatment but pursuing comfort. All of the pt and her sons questions were answered to the best of my ability. Pt and family would like some time to think over options. We will follow up in the AM to answer any further questions and clarify how pt would to be treated. Time with Patient: Greater than 30
[2017-08-19] MEDS: traZODone HCL 50 MG TAB PO SCH (20:14)
[2017-08-19] MEDS: LACTATED RINGERS 1,000 ML IV SCH (20:15)
[2017-08-20] MEDS: MORPHINE ORAL SOLN 10 MG/5 ML CUP PO PRN ×4 (00:48→18:46)
[2017-08-20] MEDS: ONDANSETRON 4 MG/2 ML VIAL IVP PRN (02:48)
[2017-08-20 07:03] LABS: HCT 38.4 % (34.0-46.0); Hypochromasia Slight; MCH 30.3 pg (25.0-35.0); MCHC 31.1 g/dL (31.0-37.0); MCV 97.3 fL (80.0-100.0); Mean Platelet Volume 6.9; Platelet Count 181 k/uL (150-450); RBC 3.95 m/uL (3.80-5.40); RDW 15.3 % (11.5-15.5); WBC 13.2 k/uL (3.8-10.6)
[2017-08-20 07:13] LABS: INR 1.4 (<1.2); Prothrombin Time 12.7 sec (9.0-12.0)
[2017-08-20 07:19] LABS: ALT 290 U/L (9-52); AST 321 U/L (14-36); Albumin 2.8 g/dL (3.5-5.0); Alkaline Phosphatase 913 U/L (38-126); Anion Gap 10 mmol/L; Blood Urea Nitrogen 13 mg/dL (7-17); Calcium 8.7 mg/dL (8.4-10.2); Carbon Dioxide 26 mmol/L (22-30); Chloride 94 mmol/L (98-107); Glucose 117 mg/dL (74-99); Potassium 4.1 mmol/L (3.5-5.1); Sodium 130 mmol/L (137-145); Total Protein 6.3 g/dL (6.3-8.2)
[2017-08-20 07:25] LABS: Total Bilirubin 18.8 mg/dL (0.2-1.3)
[2017-08-20 08:12] LABS: Eosinophils # (M) 0.26 k/uL (0-0.7); Metamyelocytes # (M) 0.26 k/uL (0); Metamyelocytes % 2 %; Monocytes # (M) 0.53 k/uL (0-1.0); Myelocytes # (M) 0.13 k/uL (0); Myelocytes % 1 %; Neutrophils # (M) 5.54 k/uL (1.3-7.7); Neutrophils % (M) 42 %; Nucleated Red Blood Cells 0 /100 WBC (0-0); Total Cells Counted 200
[2017-08-20] MEDS: SENNOSIDES-DOCUSATE SODIUM 1 EACH TAB PO SCH ×2 (08:51→19:59)
[2017-08-20] MEDS: PANTOPRAZOLE 40 MG TABLET PO SCH (08:51)
[2017-08-20] MEDS: MORPHINE SULFATE ER 30 MG TABLET PO SCH ×2 (08:51→19:58)
[2017-08-20] MEDS: DOCUSATE 100 MG CAP PO SCH ×2 (08:51→19:59)
[2017-08-20] MEDS: CITALOPRAM HYDROBROMIDE 10 MG TAB PO SCH ×2 (08:51→19:59)
[2017-08-20] MEDS: ONDANSETRON 4 MG TAB PO SCH ×3 (08:52→21:23)
[2017-08-20] MEDS: DRONABINOL 2.5 MG CAP PO SCH (08:53)
[2017-08-20] MEDS: ASPIRIN 325 MG TAB PO SCH (08:53)
[2017-08-20] MEDS: PHYTONADIONE ORAL 5 MG/5 ML ORAL.SYRG PO SCH (09:43)
[2017-08-20] MEDS ORDERED: ceFAZolin IN SWFI 2 GM/20 ML SYRINGE IVP ONE (10:30)
[2017-08-20] MEDS ORDERED: LIDOCAINE 2% INJ 20 MG/ML SQ ONE (10:40)
[2017-08-20] MEDS: MIDAZOLAM 2 MG/2 ML VIAL IV ONE ×3 (10:44→11:17)
[2017-08-20] MEDS ORDERED: SODIUM CHLORIDE 0.9% 500 ML IV ONE (10:49)
[2017-08-20] MEDS: CHOLECALCIFEROL 1,000 UNIT TAB PO SCH (12:03)
[2017-08-20] MEDS ORDERED: fentaNYL (PF) 50 MCG/ML 2 ML AMP IV ONE (12:08)
[2017-08-20] MEDS ORDERED: IOHEXOL 300 MG/ML 50 ML BOTTLE INJ ONE (12:45)
--- NOTE | 2017-08-20 15:15 | IR ---
Percutaneous transhepatic cholangiogram and biliary drain, aborted EXAMINATION TYPE: IR biliary drain percutaneous DATE OF EXAM: 08/20/2017 COMPARISON: CT 08/16/2017 HISTORY: Jaundice, biliary obstruction PROCEDURE: Maximal barrier technique was utilized. The skin overlying the left lobe of the liver was localized using ultrasound and the overlying skin prepped and draped. Ultrasound was utilized with sterile technique. Lidocaine used for local anesthesia. Skin alicia was made with a scalpel. Access w as attempted under ultrasound with a 22-gauge needle to the left lobe biliary radical. Multiple attem pts were performed. Attention and was directed to the right lobe of the liver. Using similar techniqu e attempt to cannulate a biliary radicle was performed, multiple attempts being made. Exam was subseq uently aborted. 1831 images document the procedure. 16.2 minutes fluoroscopy time. FINDINGS: Solitary biliary radicle in the right lobe thought to be enhancement. 0.018 inch wire was a dvanced. 3 [place] catheter and reservoir. Gentle hand injection of contrast performed demonstrating h epatic vein cannulation. Catheter was removed, hemostasis achieved. The patient remained in stable condition without complication. The patient was transferred to [facility]. IMPRESSION: Attempted biliary drainage without success.
--- NOTE | 2017-08-20 19:33 | P.PN ---
Subjective Progress Note Date: 08/20/17 Patient seen and examined. She is planning on having stent placed today for obstructive jaundice. She still has poor appetite and appears very weak. Objective - Vital Signs Vital signs: Vital Signs Temp 97.9 F 08/20/17 13:18 Pulse 68 08/20/17 13:18 Resp 16 08/20/17 07:00 BP 119/69 08/20/17 15:03 Pulse Ox 97 08/20/17 13:18 Intake & Output 08/19/17 08/20/17 08/20/17 18:59 06:59 18:59 Intake Total 150 Balance 150 Weight 89.811 kg Intake: IV 150 Other: Voiding Method Toilet Toilet # Voids 2 3 - Constitutional General appearance: Present: no acute distress, obese - EENT Eyes: Present: EOMI, normal appearance ENT: Present: NA/AT, normal oropharynx - Neck Details: Supple Neck: Present: other - Respiratory Details: MIld increased effort Respiratory: bilateral: diminished - Cardiovascular Rhythm: regular Heart sounds: normal: S1, S2 - Peripheral edema leg Peripheral Edema: bilateral: 1+ - Gastrointestinal General gastrointestinal: Present: hepatomegaly, normal bowel sounds, soft, tenderness Localized gastrointestinal: tender: RUQ - Integumentary Integumentary: Present: jaundiced, pale - Neurologic Neurologic Comment(s): No focal defects - Musculoskeletal Musculoskeletal: Present: generalized weakness - Psychiatric Psychiatric: Present: A&O x's 3, appropriate affect, intact judgment & insight - Labs CBC & Chem 7: 08/20/17 06:39 08/20/17 06:39 Labs: Abnormal Lab Results - Last 24 Hours (Table) 08/20/17 08/20/17 08/20/17 Range/Units 06:39 06:39 06:39 WBC 13.2 H (3.8-10.6) k/uL Lymphocytes # (Manual) 6.60 H (1.0-4.8) k/uL Metamyelocytes # (Man) 0.26 H (0) k/uL Myelocytes # (Manual) 0.13 H (0) k/uL PT 12.7 H (9.0-12.0) sec INR 1.4 H (<1.2) Sodium 130 L (137-145) mmol/L Chloride 94 L (98-107) mmol/L Creatinine 0.50 L (0.52-1.04) mg/dL Glucose 117 H (74-99) mg/dL Total Bilirubin 18.8 H* (0.2-1.3) mg/dL AST 321 H (14-36) U/L ALT 290 H (9-52) U/L Alkaline Phosphatase 913 H (38-126) U/L Albumin 2.8 L (3.5-5.0) g/dL Assessment and Plan (1) Obstructive jaundice Narrative/Plan: We discussed Dr. Angulo's findings on EGD, the inability to pass scope past a mass in the duodenum and that the finding most likely represents cancer. We discussed strong recommendation for percutaneous biliary drain as this will provide relief of jaundice and possibly some of the discomfort. Pt and her sons agreed to proceed, did speak with GI SHOT BLASTER who did discuss procedure further and will coordinate that procedure We then discussed the option of feeding either orally with liquids only or J- tube insertion. We reviewed that to treat cancer progression (which is most likely but final path was not reported yet) that treatment would be with cytotoxic agent. Pt is unsure about her ability to tolerate chemotherapy . The option of not pursuing treatment but pursuing comfort was discussed yesterday in the family meeting. We discussed this again today. Patient is unsure if she plans to move forward with treatment or pursue comfort care options. Treatment would have increased risk of intolerance with current health status and performance status. She understands this. Planning for stent placement today Current Visit: Yes Status: Acute Code(s): K83.8 - OTHER SPECIFIED DISEASES OF BILIARY TRACT SNOMED Code(s): 39994795 (2) Coagulopathy Narrative/Plan: Has been corrected for stent placement Current Visit: Yes Status: Acute Code(s): D68.9 - COAGULATION DEFECT, UNSPECIFIED SNOMED Code(s): 95371786 (3) Duodenal mass Narrative/Plan: Most likely due to progression of her cancer. This is the cause of her biliary obstruction, and ongoing partial obstructive symptoms. This is high risk for progressive bowel obstruction Current Visit: Yes Status: Acute Priority: High Code(s): K31.89 - OTHER DISEASES OF STOMACH AND DUODENUM SNOMED Code(s): 496275323 (4) History of uterine cancer Narrative/Plan: Most likely progressive. Treatment options are somewhat limited , given prior lines of therapy and current poor PS Current Visit: Yes Status: Acute Priority: High Code(s): Z85.42 - PERSONAL HISTORY OF MALIGNANT NEOPLASM OF OTH PRT UTERUS SNOMED Code(s): 495974053
[2017-08-20] MEDS: traZODone HCL 50 MG TAB PO SCH (19:59)
--- NOTE | 2017-08-20 21:04 | PN ---
PROGRESS NOTE DATE OF SERVICE: 08/20/17 This 67-year-old woman was admitted with extrahepatic biliary obstruction had EGD and ERCP. Patient also had attempted percutaneous drainage by radiology today, which could not be accomplished. No chest pain. No palpitations. PHYSICAL EXAM: Alert and oriented x3. Patient is jaundiced. Pulse is 72 blood pressure 142/87, respirations 16, temperature 98.2, pulse ox 98% on room air. HEENT: Conjunctivae anicteric. Oral mucosa icteric. Neck is no jugular venous distention. No carotid bruit. No lymph node enlargement. Cardiovascular: S1, S2. No S3, no S4. RESPIRATORY: Breath sounds diminished in the bases. Scattered rhonchi. ABDOMEN: Soft. Hepatomegaly. Legs: No edema and no swelling. Central nervous system: Diffusely weak. LABS: WBC 13.1. INR is 1.4 and bilirubin is 18.8. Increasing tendencies. ASSESSMENT: 1. Obstructive jaundice with possible extrahepatic biliary obstruction secondary to metastatic lesion with large ulcerated mass in the duodenum involving the 2nd part of the duodenum. 2. Increased bilirubin hyperbilirubinemia with extrahepatic biliary obstruction. 3. Attempted percutaneous drainage. 4. Increased AST/ALT. 5. Coagulopathy secondary to liver METS. 6. History of endometrial carcinoma with metastasis. 7. Increased alkaline phosphatase, increased WBC. 8. History of appendectomy and cholecystectomy. 9. History of anxiety, depression. 10.FULL CODE. RECOMMENDATIONS AND DISCUSSION: Recommend to continue current medications, continue with monitoring and symptomatic treatment. Otherwise we will discuss the case with hematology/Oncology and multiple consultants. Prognosis guarded. Further recommendations to follow. Prognosis guarded. The patient is currently FULL CODE. MMODL / IJN: [id number] /
[2017-08-20] MEDS: ALPRAZolam 0.5 MG TAB PO PRN (21:23)
[2017-08-21] MEDS: LACTATED RINGERS 1,000 ML IV SCH (02:22)
[2017-08-21] MEDS: ASPIRIN 325 MG TAB PO SCH (07:30)
[2017-08-21] MEDS: MORPHINE ORAL SOLN 10 MG/5 ML CUP PO PRN ×4 (07:31→20:27)
[2017-08-21 07:37] LABS: HCT 34.3 % (34.0-46.0); HGB 10.9 gm/dL (11.4-16.0); Hypochromasia Slight; MCH 30.6 pg (25.0-35.0); MCHC 31.8 g/dL (31.0-37.0); MCV 96.4 fL (80.0-100.0); Mean Platelet Volume 6.8; Platelet Count 185 k/uL (150-450); RBC 3.56 m/uL (3.80-5.40); RDW 15.7 % (11.5-15.5); WBC 12.3 k/uL (3.8-10.6)
[2017-08-21 07:50] LABS: ALT 237 U/L (9-52); AST 255 U/L (14-36); Albumin 2.6 g/dL (3.5-5.0); Alkaline Phosphatase 908 U/L (38-126); Anion Gap 9 mmol/L; Blood Urea Nitrogen 14 mg/dL (7-17); Calcium 8.6 mg/dL (8.4-10.2); Carbon Dioxide 27 mmol/L (22-30); Chloride 96 mmol/L (98-107); Glucose 105 mg/dL (74-99); Potassium 3.9 mmol/L (3.5-5.1); Sodium 132 mmol/L (137-145); Total Protein 5.9 g/dL (6.3-8.2)
[2017-08-21 08:05] LABS: Total Bilirubin 21.1 mg/dL (0.2-1.3)
[2017-08-21 08:43] LABS: Eosinophils # (M) 0.37 k/uL (0-0.7); Lymphocytes # (M) 5.17 k/uL (1.0-4.8); Monocytes # (M) 0.74 k/uL (0-1.0); Neutrophils # (M) 6.03 k/uL (1.3-7.7); Neutrophils % (M) 49 %; Nucleated Red Blood Cells 0 /100 WBC (0-0); Total Cells Counted 100
[2017-08-21] MEDS: DOCUSATE 100 MG CAP PO SCH ×2 (08:44→23:09)
[2017-08-21] MEDS: SENNOSIDES-DOCUSATE SODIUM 1 EACH TAB PO SCH ×2 (08:45→23:09)
[2017-08-21] MEDS: DRONABINOL 2.5 MG CAP PO SCH (08:45)
[2017-08-21] MEDS: ALPRAZolam 0.5 MG TAB PO PRN ×2 (08:45→23:55)
[2017-08-21] MEDS: MORPHINE SULFATE ER 30 MG TABLET PO SCH ×2 (08:45→23:55)
[2017-08-21] MEDS: PANTOPRAZOLE 40 MG TABLET PO SCH (08:46)
[2017-08-21] MEDS: ONDANSETRON 4 MG TAB PO SCH ×3 (08:46→23:09)
[2017-08-21] MEDS: CITALOPRAM HYDROBROMIDE 10 MG TAB PO SCH ×2 (08:46→23:09)
[2017-08-21] MEDS: PHYTONADIONE ORAL 5 MG/5 ML ORAL.SYRG PO SCH (08:50)
--- NOTE | 2017-08-21 10:57 | P.PN ---
Subjective Progress Note Date: 08/21/17 Principal diagnosis: Obstructive jaundice 67-year-old female history of metastatic uterine carcinoma, status post unsuccessful ERCP evaluation earlier this week with findings of partial obstructing duodenal mass impeding advancement of scope into the ampulla as well as causing a partial gastric outlet obstruction. Unsuccessful PTC yesterday. Patient received news this morning her son . Presently resting in bed. Afebrile. T bili; 21.1. Objective - Vital Signs Vital signs: Vital Signs Temp 98.6 F 08/21/17 07:47 Pulse 76 08/21/17 07:47 Resp 16 08/21/17 07:47 BP 144/84 08/21/17 07:47 Pulse Ox 94 L 08/21/17 07:47 Intake & Output 08/20/17 08/21/17 08/21/17 18:59 06:59 18:59 Intake Total 150 540 Balance 150 540 Weight 89.811 kg Intake: IV 150 Oral 540 Other: Voiding Method Toilet Toilet # Voids 1 1 # Bowel Movements 1 - Exam General appearance: The patient is alert, oriented, in no acute distress. Visibly jaundice HET: Head is normocephalic and atraumatic. Pupils are equal and reactive. Sclerae icterus. Oropharynx is clear without lesions. Neck: Supple without lymphadenopathy. Trachea midline. Heart: S1 S2. Regular rate and rhythm. Lungs: No crackles or wheezes are heard. Abdomen: Soft, mild midepigastric tenderness, nondistended with bowel sounds. No peritoneal signs. No palpable organomegaly or masses. Extremities: Normal skin color and turgor. No cyanosis, rash, ulceration, clubbing, or edema. Radial and pedal pulses are 2/4 bilaterally. Neurological: No focal deficits. Strength and sensation are grossly intact. - Labs CBC & Chem 7: 08/21/17 07:00 08/21/17 07:00 Labs: Abnormal Lab Results - Last 24 Hours (Table) 08/21/17 08/21/17 Range/Units 07:00 07:00 WBC 12.3 H (3.8-10.6) k/uL RBC 3.56 L (3.80-5.40) m/uL Hgb 10.9 L (11.4-16.0) gm/dL RDW 15.7 H (11.5-15.5) % Lymphocytes # (Manual) 5.17 H (1.0-4.8) k/uL Sodium 132 L (137-145) mmol/L Chloride 96 L (98-107) mmol/L Glucose 105 H (74-99) mg/dL Total Bilirubin 21.1 H* (0.2-1.3) mg/dL AST 255 H (14-36) U/L ALT 237 H (9-52) U/L Alkaline Phosphatase 908 H (38-126) U/L Total Protein 5.9 L (6.3-8.2) g/dL Albumin 2.6 L (3.5-5.0) g/dL Assessment and Plan (1) Obstructive jaundice due to malignant neoplasm Narrative/Plan: Worsening total bilirubin Current Visit: Yes Status: Acute Code(s): K83.1 - OBSTRUCTION OF BILE DUCT; C80.1 - MALIGNANT (PRIMARY) NEOPLASM, UNSPECIFIED SNOMED Code(s): 33412515 (2) Partial gastric outlet obstruction Current Visit: Yes Status: Acute Code(s): K31.1 - ADULT HYPERTROPHIC PYLORIC STENOSIS SNOMED Code(s): 475105050 (3) Duodenal mass Current Visit: Yes Status: Acute Priority: High Code(s): K31.89 - OTHER DISEASES OF STOMACH AND DUODENUM SNOMED Code(s): 742792698 (4) History of uterine cancer Current Visit: Yes Status: Acute Priority: High Code(s): Z85.42 - PERSONAL HISTORY OF MALIGNANT NEOPLASM OF OTH PRT UTERUS SNOMED Code(s): 517863680 (5) Coagulopathy Current Visit: Yes Status: Acute Code(s): D68.9 - COAGULATION DEFECT, UNSPECIFIED SNOMED Code(s): 66724033 (6) Grieving Narrative/Plan: unexpected of son Current Visit: Yes Status: Acute Code(s): F43.20 - ADJUSTMENT DISORDER, UNSPECIFIED SNOMED Code(s): 614865414 Plan: 1. Continue with supportive measures. Nursing is arranging patient to see her son and family. 2. Will defer to oncology for further management and treatment; liquid diet as tolerated. Assessment and plan of care discussed with Dr. Ch
[2017-08-21] MEDS: CHOLECALCIFEROL 1,000 UNIT TAB PO SCH (11:07)
[2017-08-21] MEDS: METHOCARBAMOL 750 MG TAB PO PRN (13:20)
--- NOTE | 2017-08-21 14:23 | FL ---
EXAMINATION TYPE: FL guidance operating room DATE OF EXAM: 08/18/2017 CLINICAL HISTORY: New onset jaundice. TECHNIQUE: Fluoroscopy. COMPARISON: CT abdomen pelvis from 2 days ago FINDINGS: Fluoroscopic guidance was provided during attempted ERCP procedure performed by Dr. Angulo. A total of 6 seconds of fluoroscopic time was utilized during the procedure and one spot intraopera tive image is acquired. Single image acquired shows nonopacified biliary system as exam was unsuccess ful. IMPRESSION: As Above.
--- NOTE | 2017-08-21 22:13 | PN ---
PROGRESS NOTE DATE OF SERVICE: 08/21/2017. This 67-year-old woman is admitted with extrahepatic biliary obstruction had possible malignancy multiple secondaries and the PTC was not successful. The different options were discussed the family and multiple consultants including Gastroenterology and Hematology/Oncology following the patient closely. PHYSICAL EXAM: Patient is severely jaundiced, pulse 72, blood pressure 151/84, respirations 16, temperature 97.8, pulse ox 94% on room air. HEENT: Conjunctivae anicteric. Oral mucosa moist. Anicteric. Cardiovascular system: Normal S1, S2. No S3, no S4. Respiratory: Breath sounds diminished in the bases. A few scattered rhonchi and crackles. ABDOMEN: Soft, otherwise tenderness in the epigastrium present. No mass palpable. Legs: No edema and no swelling. NERVOUS SYSTEM: Higher functions as mentioned earlier. Moves all four limbs. Lymphatics: No lymph nodes palpable in the neck, axillae or groin. LABS: WBC 12.2, hemoglobin 10.9, sodium 138, potassium 3.9, and the bilirubin is 21.1. Other labs are noted. ASSESSMENT: 1. Obstructive jaundice with possible extra hepatic biliary obstruction secondary to metastatic lesion with large ulcerated mass in the duodenum involving the 2nd part of the duodenum. 2. Increased bilirubin, hyperbilirubinemia with extra hepatic biliary obstruction. 3. Attempted percutaneous drainage. 4. Increased AST/ALT. 5. Coagulopathy secondary to liver METS. 6. History of endometrial carcinoma with metastasis. 7. Increased alkaline phosphatase, increased WBC. 8. History of appendectomy, cholecystectomy. 9. History of anxiety/depression. 10.NO CODE. RECOMMENDATIONS AND DISCUSSION: Recommend to continue current medications, management and symptomatic treatment, otherwise monitor the patient closely. Guarded prognosis. Discussed with family at length and the patient is currently NO CODE. Further recommendations to follow. MMODL / IJN: [id number] / [facility]IATRIC CENTERFiona
[2017-08-21] MEDS: traZODone HCL 50 MG TAB PO SCH (23:09)
[2017-08-22] MEDS: MORPHINE ORAL SOLN 10 MG/5 ML CUP PO PRN ×3 (02:55→20:21)
[2017-08-22] MEDS: LACTATED RINGERS 1,000 ML IV SCH (04:39)
[2017-08-22 06:23] LABS: ALT 208 U/L (9-52); AST 230 U/L (14-36); Albumin 2.6 g/dL (3.5-5.0); Alkaline Phosphatase 930 U/L (38-126); Anion Gap 8 mmol/L; Blood Urea Nitrogen 13 mg/dL (7-17); Calcium 8.6 mg/dL (8.4-10.2); Carbon Dioxide 28 mmol/L (22-30); Chloride 94 mmol/L (98-107); Glucose 115 mg/dL (74-99); Potassium 3.7 mmol/L (3.5-5.1); Sodium 130 mmol/L (137-145)
[2017-08-22] MEDS: METHOCARBAMOL 750 MG TAB PO PRN ×2 (06:24→07:25)
[2017-08-22 06:37] LABS: Total Bilirubin 25.6 mg/dL (0.2-1.3)
[2017-08-22 06:44] LABS: Anisocytosis Slight; HCT 32.3 % (34.0-46.0); HGB 10.5 gm/dL (11.4-16.0); MCH 30.8 pg (25.0-35.0); MCHC 32.6 g/dL (31.0-37.0); MCV 94.4 fL (80.0-100.0); Platelet Count 166 k/uL (150-450); RBC 3.42 m/uL (3.80-5.40); RDW 16.2 % (11.5-15.5)
[2017-08-22 07:08] LABS: Eosinophils # (M) 0.13 k/uL (0-0.7); Lymphocytes # (M) 6.11 k/uL (1.0-4.8); Monocytes # (M) 0.65 k/uL (0-1.0); Neutrophils # (M) 6.11 k/uL (1.3-7.7); Neutrophils % (M) 47 %; Nucleated Red Blood Cells 0 /100 WBC (0-0); Total Cells Counted 100
[2017-08-22] MEDS: CITALOPRAM HYDROBROMIDE 10 MG TAB PO SCH ×2 (07:25→20:21)
[2017-08-22] MEDS: ASPIRIN 325 MG TAB PO SCH (07:25)
[2017-08-22] MEDS: DOCUSATE 100 MG CAP PO SCH ×2 (07:26→20:20)
[2017-08-22] MEDS: ONDANSETRON 4 MG TAB PO SCH ×3 (07:26→23:58)
[2017-08-22] MEDS: PANTOPRAZOLE 40 MG TABLET PO SCH (07:27)
[2017-08-22] MEDS: MORPHINE SULFATE ER 30 MG TABLET PO SCH ×3 (07:34→23:58)
[2017-08-22] MEDS: SENNOSIDES-DOCUSATE SODIUM 1 EACH TAB PO SCH ×2 (07:35→20:20)
[2017-08-22] MEDS: DRONABINOL 2.5 MG CAP PO SCH (07:35)
[2017-08-22] MEDS: CHOLECALCIFEROL 1,000 UNIT TAB PO SCH (12:52)
[2017-08-22] MEDS: PHYTONADIONE ORAL 5 MG/5 ML ORAL.SYRG PO SCH (12:52)
--- NOTE | 2017-08-22 15:09 | PN ---
PROGRESS NOTE DATE OF SERVICE: 08/22/2017 CHIEF COMPLAINT: Weak. Arlet is seen today as a followup. She is very weak. She is very tired. Her pain is relatively under control. Her vital signs are temperature 97.9, afebrile, pulse 74 regular, respiration 18, blood pressure 119/75. HEENT: She has significant icterus. Neck is supple. Chest and lungs are clear. Heart is regular. Abdomen is soft. She has tenderness in the right upper quadrant. Extremity 1+ edema. IMPRESSION: End-stage metastatic uterine carcinoma. The patient has failed multiple lines of chemotherapy. RECOMMENDATION: 1. I agree with the comfort care/hospice. 2. The patient is highly considering to go to the hospice home in [place]. 3. Will increase the frequency of her pain medication. MMODL / IJN: [id number] /
--- NOTE | 2017-08-22 18:33 | PN ---
PROGRESS NOTE DATE OF SERVICE: 08/22/2017 This 67-year-old woman is admitted with obstructive jaundice had failed percutaneous transhepatic cannulation. The patient is closely monitored. Patient had extensive tumor burden also. Dr. Durbin is following the patient closely. Dr. Durbin is recommending a comfort measures or hospice. [facility] is a possibility. PHYSICAL EXAM: Patient is drowsy. Pulse is 74, blood pressure 120/77, respirations 16, temperature 99.2, pulse ox 94% on room air. HEENT: Conjunctivae icteric. Oral mucosa moist. NECK: No jugular venous distention. CARDIOVASCULAR: S1, S2. RESPIRATORY: Breath sounds diminished in the bases. A few scattered rhonchi. No crackles. ABDOMEN: Soft, distention. LEGS: No edema, no swelling. NERVOUS SYSTEM: Diffusely weak. SKIN: Jaundiced. LAB: WBC 13, hemoglobin 10.5, and bilirubin is 24.6. Ammonia 33. ASSESSMENT: 1. Obstructive jaundice with possible extrahepatic biliary obstruction secondary to metastatic patient with large ulcerated mass in duodenum involving the second part of the duodenum. 2. Increased bilirubin, hyper bilirubin with extrahepatic biliary obstruction. 3. Increased AST, ALT. 4. Coagulopathy secondary to liver metastasis. 5. History of endometrial carcinoma with metastasis. 6. Increased alkaline phosphatase. 7. Increased WBC. 8. History of appendectomy, cholecystectomy. 9. History of anxiety, depression. 10.NO CODE, NO CPR, NO VENT. RECOMMENDATIONS AND DISCUSSION: I recommend to continue current management, continue monitoring and symptomatic treatment. Otherwise at this time I recommend monitor closely. Conservative line of management. Possible hospice, comfort measures. Prognosis guarded. Further recommendations to follow. Dr. Durbin's input appreciated. MMODL / IJN: [id number] /
[2017-08-22] MEDS: traZODone HCL 50 MG TAB PO SCH (20:19)
[2017-08-22] MEDS: ALPRAZolam 0.5 MG TAB PO PRN (23:58)
[2017-08-23] MEDS: LACTATED RINGERS 1,000 ML IV SCH ×2 (03:04→21:40)
[2017-08-23] MEDS: MORPHINE ORAL SOLN 10 MG/5 ML CUP PO PRN ×3 (03:23→18:24)
[2017-08-23] MEDS: DOCUSATE 100 MG CAP PO SCH ×2 (07:04→07:08)
[2017-08-23] MEDS: SENNOSIDES-DOCUSATE SODIUM 1 EACH TAB PO SCH ×2 (07:07→21:41)
[2017-08-23] MEDS: DRONABINOL 2.5 MG CAP PO SCH (07:08)
[2017-08-23] MEDS: ONDANSETRON 4 MG TAB PO SCH ×3 (07:08→23:42)
[2017-08-23] MEDS: ASPIRIN 325 MG TAB PO SCH (07:08)
[2017-08-23] MEDS: CITALOPRAM HYDROBROMIDE 10 MG TAB PO SCH ×2 (07:08→21:40)
[2017-08-23] MEDS: PANTOPRAZOLE 40 MG TABLET PO SCH (07:08)
[2017-08-23 07:09] LABS: ALT 235 U/L (9-52); AST 349 U/L (14-36); Albumin 2.6 g/dL (3.5-5.0); Alkaline Phosphatase 1070 U/L (38-126); Anion Gap 11 mmol/L; Blood Urea Nitrogen 16 mg/dL (7-17); Calcium 8.5 mg/dL (8.4-10.2); Carbon Dioxide 25 mmol/L (22-30); Chloride 94 mmol/L (98-107); Glucose 105 mg/dL (74-99); Potassium 3.8 mmol/L (3.5-5.1); Sodium 130 mmol/L (137-145); Total Protein 6.1 g/dL (6.3-8.2)
[2017-08-23] MEDS: MORPHINE SULFATE ER 30 MG TABLET PO SCH ×2 (07:09→14:47)
[2017-08-23 07:16] LABS: Anisocytosis Slight; HCT 34.5 % (34.0-46.0); MCH 30.6 pg (25.0-35.0); MCHC 31.9 g/dL (31.0-37.0); MCV 95.8 fL (80.0-100.0); Mean Platelet Volume 7.4; Platelet Count 187 k/uL (150-450); RDW 16.6 % (11.5-15.5)
[2017-08-23 07:18] LABS: Total Bilirubin 27.7 mg/dL (0.2-1.3)
[2017-08-23 08:09] LABS: Band Neutrophils % 1 %; Lymphocytes # (M) 5.04 k/uL (1.0-4.8); Metamyelocytes # (M) 0.28 k/uL (0); Metamyelocytes % 2 %; Monocytes # (M) 0.98 k/uL (0-1.0); Neutrophils % (M) 55 %; Nucleated Red Blood Cells 0 /100 WBC (0-0); Total Cells Counted 200
[2017-08-23 08:10] LABS: Polychromasia Present
[2017-08-23] MEDS: LACTULOSE 20 GM/30 ML CUP PO SCH ×3 (12:13→21:40)
[2017-08-23] MEDS: PHYTONADIONE ORAL 5 MG/5 ML ORAL.SYRG PO SCH (12:13)
[2017-08-23] MEDS: CHOLECALCIFEROL 1,000 UNIT TAB PO SCH (12:13)
[2017-08-23] MEDS ORDERED: ARTIFICIAL TEARS OINTMENT 3.5 GM TUBE BOTH EYES PRN (12:16)
--- NOTE | 2017-08-23 19:03 | PN ---
PROGRESS NOTE DATE OF SERVICE: 08/23/2017 This 67-year-old woman is admitted with obstructive jaundice and a failed percutaneous transhepatic cannulation is being closely monitored. Patient with obstructive jaundice. The patient is NO CODE. Family is considering hospice care at this time. Dr. Durbin is following the patient closely. No chest pain. No palpitations. EXAM: Pulse 73. Patient oriented x3. Blood pressure 120/64, respiration 18, temperature 97.2, pulse ox 94% on room air. HEENT: The patient is deeply jaundiced. Conjunctivae pale. Oral mucosa moist. NECK: No jugular venous distention. CARDIOVASCULAR: S1, S2. RESPIRATORY: Breath sounds diminished in the bases. A few rhonchi. ABDOMEN: Soft, mild diffuse distention. LEGS: No edema. NERVOUS SYSTEM: Diffusely weak. LABS: WBC 14, hemoglobin 11, sodium 130, potassium 3.8. Bilirubin is 27.7. ASSESSMENT: 1. Obstructive jaundice with possible extrahepatic biliary obstruction secondary to metastatic and endometrial carcinoma. The large ulcerated mass in the duodenum involving the second part of the duodenum. 2. Increased bilirubin, hyperbilirubinemia with extrahepatic biliary obstruction. 3. Increased AST, ALT. 4. Coagulopathy secondary to chronic liver metastasis. 5. History of endometrial carcinoma with metastasis. 6. Increased alkaline phosphatase. 7. Increased WBC. 8. History of appendectomy. 9. Cholecystectomy. 10.History of anxiety, depression. 11.NO CODE, NO CPR, NO VENT. RECOMMENDATIONS AND DISCUSSION: I recommend to continue current management and symptomatic treatment. Continue comfort measures and will discuss with the family regarding the hospice evaluation and possible transfer to [facility] or inpatient hospice. Prognosis guarded because of multiple complex medical issues. MMODL / IJN: [id number] /
--- NOTE | 2017-08-23 20:56 | P.PN ---
Subjective Progress Note Date: 08/21/17 Principal diagnosis: Metastatic Cancer Patient seen and examined. She was unable to have stent placed. Family at bedside, we discussed goals of care. She remains quite weak, with poor PO intake. She can tolerate essentially small amounts of liquids only at a time. Objective - Vital Signs Vital signs: Vital Signs Temp 97.8 F 08/21/17 15:00 Pulse 72 08/21/17 15:00 Resp 16 08/21/17 15:00 BP 151/84 08/21/17 15:00 Pulse Ox 95 08/21/17 15:00 Intake & Output 08/20/17 08/21/17 08/21/17 18:59 06:59 18:59 Intake Total 150 540 Balance 150 540 Weight 89.811 kg 89.811 kg Intake: IV 150 Oral 540 Other: Voiding Method Toilet Toilet # Voids 1 1 # Bowel Movements 1 - Constitutional General appearance: Present: cooperative, morbidly obese - EENT Eyes: Present: EOMI, PERRLA, poor dentition, scleral icterus ENT: Present: normal oropharynx - Respiratory Respiratory: bilateral: CTA - Cardiovascular Rhythm: regular Heart sounds: normal: S1, S2 - Gastrointestinal General gastrointestinal: Present: distended, soft, tenderness Localized gastrointestinal: tender: RUQ - Integumentary Integumentary: Present: jaundiced - Neurologic Neurologic Comment(s): NO Focal Defects - Musculoskeletal Musculoskeletal: Present: generalized weakness - Psychiatric Psychiatric: Present: A&O x's 3, appropriate affect, intact judgment & insight - Labs CBC & Chem 7: 08/23/17 06:33 08/23/17 06:33 Labs: Abnormal Lab Results - Last 24 Hours (Table) 08/21/17 08/21/17 Range/Units 07:00 07:00 WBC 12.3 H (3.8-10.6) k/uL RBC 3.56 L (3.80-5.40) m/uL Hgb 10.9 L (11.4-16.0) gm/dL RDW 15.7 H (11.5-15.5) % Lymphocytes # (Manual) 5.17 H (1.0-4.8) k/uL Sodium 132 L (137-145) mmol/L Chloride 96 L (98-107) mmol/L Glucose 105 H (74-99) mg/dL Total Bilirubin 21.1 H* (0.2-1.3) mg/dL AST 255 H (14-36) U/L ALT 237 H (9-52) U/L Alkaline Phosphatase 908 H (38-126) U/L Total Protein 5.9 L (6.3-8.2) g/dL Albumin 2.6 L (3.5-5.0) g/dL Assessment and Plan (1) Duodenal mass Narrative/Plan: Most likely due to progression of her cancer. This is the cause of her biliary obstruction, and ongoing partial obstructive symptoms. This is high risk for progressive bowel obstruction Since stent placement was unsuccessful a long discussion was had with patient. We discussed her wishes on the goals of her care, at this time she wishes to move forward with comfort care. We will have hospice information meeting. She would require 24 hour care, possibly Hospice house or another facility if possible. Current Visit: Yes Status: Acute Priority: High Code(s): K31.89 - OTHER DISEASES OF STOMACH AND DUODENUM SNOMED Code(s): 892914854 (2) Coagulopathy Narrative/Plan: Due to liver dysfunction. This was corrected prior to stent placement. No evidence of active bleeding Current Visit: Yes Status: Acute Code(s): D68.9 - COAGULATION DEFECT, UNSPECIFIED SNOMED Code(s): 55991633 (3) History of uterine cancer Narrative/Plan: Progressive , leading to current presentation. She has progressed through multiple lines of therapy, and current PS is very poor. Thus we had a detailed discussion re prognosis and goals of care as noted above. Given her state of disease, poor PS, and high risk of adverse events with active treatment, she is not a good candidate for aggressive treatment. The pt clearly stated stated she would rather be kept comfortable. This was also d/w her son, who was in agreement. She was living alone, and they had concerns about discharge disposition. Hospice will be consulted for informational visit. Case was also d/ w Social Work re the above. Code status will be changed to No Code/No CPR. Case was also extensively d/w the admitting service Current Visit: Yes Status: Acute Priority: High Code(s): Z85.42 - PERSONAL HISTORY OF MALIGNANT NEOPLASM OF OTH PRT UTERUS SNOMED Code(s): 786679567
[2017-08-23] MEDS: METHOCARBAMOL 750 MG TAB PO PRN (21:39)
[2017-08-23] MEDS: traZODone HCL 50 MG TAB PO SCH (21:40)
[2017-08-23] MEDS: ALPRAZolam 0.5 MG TAB PO PRN (21:52)
[2017-08-24] MEDS: MORPHINE SULFATE ER 30 MG TABLET PO SCH ×4 (01:14→23:57)
[2017-08-24] MEDS: MORPHINE ORAL SOLN 10 MG/5 ML CUP PO PRN ×3 (05:41→17:48)
[2017-08-24] MEDS: METHOCARBAMOL 750 MG TAB PO PRN ×2 (06:21→14:14)
[2017-08-24] MEDS: LACTULOSE 20 GM/30 ML CUP PO SCH ×3 (09:23→21:51)
[2017-08-24] MEDS: DRONABINOL 2.5 MG CAP PO SCH (09:23)
[2017-08-24] MEDS: ASPIRIN 325 MG TAB PO SCH (09:23)
[2017-08-24] MEDS: ONDANSETRON 4 MG TAB PO SCH ×3 (09:25→21:51)
[2017-08-24] MEDS: DOCUSATE 100 MG CAP PO SCH ×2 (09:25→21:51)
[2017-08-24] MEDS: PANTOPRAZOLE 40 MG TABLET PO SCH (09:25)
[2017-08-24] MEDS: CITALOPRAM HYDROBROMIDE 10 MG TAB PO SCH ×2 (09:25→21:51)
[2017-08-24] MEDS: SENNOSIDES-DOCUSATE SODIUM 1 EACH TAB PO SCH ×2 (09:26→21:50)
[2017-08-24] MEDS: CHOLECALCIFEROL 1,000 UNIT TAB PO SCH (14:14)
[2017-08-24] MEDS: PHYTONADIONE ORAL 5 MG/5 ML ORAL.SYRG PO SCH (14:24)
--- NOTE | 2017-08-24 18:41 | PN ---
PROGRESS NOTE DATE OF SERVICE: 08/24/2017 This 67-year-old woman was admitted with metastatic endometrial carcinoma is also severely jaundiced. The patient's family is working with hospice and complex case manager for arranging comfort measures also. No chest pain. No palpitations. No fever. PHYSICAL EXAM: Alert and oriented x2. Pulse 72, blood pressure 99/60, respiration 16, temperature 98.2, pulse ox 94% on room air. HEENT is conjunctivae icteric. Oral mucosa icteric. Skin is icteric. Cardiovascular system: S1, S2 muffled. No S3 and no S4. Respiratory: Breath sounds diminished in the bases. A few rhonchi. No crackles. ABDOMEN: Soft, mild diffuse discomfort in the right upper quadrant. No mass palpable. Legs: No edema and no swelling. Nervous System: Higher functions as mentioned earlier. Moves all 4 limbs. LABS: Today's labs are ammonia 30. Other labs are not available. Yesterday bilirubin is 25. ASSESSMENT: 1. Obstructive jaundice possible extrahepatic biliary obstruction secondary to metastatic endometrial carcinoma. 2. Large ulcerated mass in the duodenal wall and 2nd part of duodenum and during the EGD. 3. EGD, colonoscopy. 4. Increased AST, ALT. 5. Increased bilirubin and hyperbilirubinemia with extrahepatic biliary obstruction. 6. Coagulopathy secondary to chronic liver disease. 7. History of endometrial cancer with metastasis. 8. Increased alkaline phosphatase. 9. Increased WBC. 10.History of appendectomy. 11.History of cholecystectomy. 12.History of anxiety, depression. 13.NO CODE, NO CPR, NO VENT. RECOMMENDATIONS AND DISCUSSION: Continue current medications, management and symptomatic treatment. Closely follow with Case Management team and high school social studies tutor for possible comfort measures. Further recommendations to follow. MMODL / IJN: [id number] /
[2017-08-24] MEDS: traZODone HCL 50 MG TAB PO SCH (21:51)
[2017-08-24] MEDS: LACTATED RINGERS 1,000 ML IV SCH (23:57)
[2017-08-25] MEDS: LACTULOSE 20 GM/30 ML CUP PO SCH ×3 (08:17→20:03)
[2017-08-25] MEDS: MORPHINE SULFATE ER 30 MG TABLET PO SCH ×2 (08:19→15:52)
[2017-08-25] MEDS: DRONABINOL 2.5 MG CAP PO SCH (08:19)
[2017-08-25] MEDS: ALPRAZolam 0.5 MG TAB PO PRN ×2 (08:19→20:11)
[2017-08-25] MEDS: ONDANSETRON 4 MG TAB PO SCH ×3 (08:19→20:03)
[2017-08-25] MEDS: SENNOSIDES-DOCUSATE SODIUM 1 EACH TAB PO SCH ×2 (08:19→20:04)
[2017-08-25] MEDS: DOCUSATE 100 MG CAP PO SCH ×2 (08:19→20:03)
[2017-08-25] MEDS: ASPIRIN 325 MG TAB PO SCH (08:19)
[2017-08-25] MEDS: CITALOPRAM HYDROBROMIDE 10 MG TAB PO SCH ×2 (08:19→20:03)
[2017-08-25] MEDS: PANTOPRAZOLE 40 MG TABLET PO SCH (08:19)
[2017-08-25] MEDS: CHOLECALCIFEROL 1,000 UNIT TAB PO SCH (08:21)
[2017-08-25] MEDS: PHYTONADIONE ORAL 5 MG/5 ML ORAL.SYRG PO SCH (09:14)
--- NOTE | 2017-08-25 17:03 | PN ---
PROGRESS NOTE DATE OF SERVICE: 08/25/2017 This 67-year-old woman who was admitted with obstructive jaundice with possible extrahepatic biliary obstruction had metastatic adenocarcinoma. The patient has severe jaundice. The family is considering hospice care at this time. On exam, pulse 80, blood pressure 88/56, respiration 18, temperature 97.6, pulse ox 94% on room air. HEENT: Conjunctivae icteric. Oral mucosa moist. NECK: No jugular venous distention. CARDIOVASCULAR SYSTEM: S1, S2 muffled. RESPIRATORY SYSTEM: Breath sounds diminished at the bases. A few scattered rhonchi. ABDOMEN: Soft. NERVOUS SYSTEM: Generally weak. Labs are reviewed. ASSESSMENT: 1. Obstructive jaundice, possibly extrahepatic biliary obstruction secondary to metastatic endometrial carcinoma. 2. Large ulcerated mass in the duodenal wall in the second part of the duodenum during the EGD. 3. EGD, colonoscopy and attempted ERCP. 4. Increased AST and ALT. 5. Increased bilirubin, hyperbilirubinemia with extrahepatic biliary obstruction. 6. Coagulopathy secondary to chronic liver disease. 7. History of endometrial carcinoma with metastases. 8. Increased alkaline phosphatase. 9. Increased white count. 10.History of appendectomy. 11.History of cholecystectomy. 12.History of anxiety, depression. 13.NO CODE, NO CPR, NO VENT. RECOMMENDATIONS AND DISCUSSION: I recommend to continue current medication, continue symptomatic treatment. Otherwise, continue with current medications. Prognosis guarded. Discussed with the family. Further recommendations to follow. MMLAUREL / TESSYN: [id number] /
[2017-08-25] MEDS: MORPHINE ORAL SOLN 10 MG/5 ML CUP PO PRN (18:07)
[2017-08-25] MEDS: traZODone HCL 50 MG TAB PO SCH (20:03)
[2017-08-25] MEDS: LACTATED RINGERS 1,000 ML IV SCH (20:05)
[2017-08-26] MEDS: MORPHINE SULFATE ER 30 MG TABLET PO SCH ×3 (04:46→15:44)
[2017-08-26] MEDS: DRONABINOL 2.5 MG CAP PO SCH (08:59)
[2017-08-26] MEDS: LACTULOSE 20 GM/30 ML CUP PO SCH ×3 (08:59→21:09)
[2017-08-26] MEDS: PANTOPRAZOLE 40 MG TABLET PO SCH (08:59)
[2017-08-26] MEDS: ONDANSETRON 4 MG TAB PO SCH ×3 (09:00→21:09)
[2017-08-26] MEDS: CITALOPRAM HYDROBROMIDE 10 MG TAB PO SCH ×2 (09:00→21:09)
[2017-08-26] MEDS: ASPIRIN 325 MG TAB PO SCH (09:00)
[2017-08-26] MEDS: CHOLECALCIFEROL 1,000 UNIT TAB PO SCH (09:00)
[2017-08-26] MEDS: DOCUSATE 100 MG CAP PO SCH ×2 (09:00→21:09)
[2017-08-26] MEDS: SENNOSIDES-DOCUSATE SODIUM 1 EACH TAB PO SCH ×2 (09:01→21:12)
[2017-08-26] MEDS: PHYTONADIONE ORAL 5 MG/5 ML ORAL.SYRG PO SCH (13:11)
[2017-08-26] MEDS: MORPHINE ORAL SOLN 10 MG/5 ML CUP PO PRN ×3 (13:11→21:08)
[2017-08-26] MEDS: METHOCARBAMOL 750 MG TAB PO PRN (15:44)
--- NOTE | 2017-08-26 18:01 | PN ---
PROGRESS NOTE DATE OF SERVICE: 08/26/2017. INTERVAL HISTORY: This 67-year-old woman was admitted with obstructive jaundice with worsening. The family and the patient are considering possible hospice at this time. No chest pain. No palpitations. No fever. EXAM: Pulse 83, blood pressure 140/47, respirations 18, temperature 98.4, pulse ox 97% on room air. GENERAL: The patient is deeply jaundiced. CARDIOVASCULAR: S1 and S2 muffled. LUNGS: Few scattered rhonchi. ABDOMEN: Soft. Mild distention. NERVOUS SYSTEM: Diffusely weak. LABS: Not available. ASSESSMENT: 1. Obstructive jaundice, possibly extrahepatic biliary obstruction secondary to metastatic endometrial carcinoma. 2. Large ulcerated mass in the duodenal wall in the second part of the duodenum during the EGD. 3. Esophagogastroduodenoscopy and colonoscopy, attempted endoscopic retrograde cholangiopancreatography. 4. Increased AST and ALT. 5. Increased bilirubin, hyperbilirubinemia with extrahepatic biliary obstruction. 6. Coagulopathy secondary to chronic liver disease. 7. History of endometrial carcinoma with metastasis. 8. Increased alkaline phosphatase. 9. Increased WBC. 10.History of appendectomy. 11.History of cholecystectomy. 12.History of anxiety, depression. 13.NO CODE, NO CPR, NO VENT. RECOMMENDATIONS: Continue current medication, continue symptomatic treatment. Otherwise closely work with briefcase sewer and high school social science teacher for arranging hospice. Further recommendations to follow. MMODL / IJN: [id number] /
[2017-08-26] MEDS: traZODone HCL 50 MG TAB PO SCH (21:09)
[2017-08-26] MEDS: ALPRAZolam 0.5 MG TAB PO PRN (21:09)
[2017-08-26] MEDS: LACTATED RINGERS 1,000 ML IV SCH (23:11)
[2017-08-27] MEDS: MORPHINE SULFATE ER 30 MG TABLET PO SCH ×3 (02:02→16:39)
[2017-08-27] MEDS: MORPHINE ORAL SOLN 10 MG/5 ML CUP PO PRN ×3 (02:03→16:40)
[2017-08-27] MEDS: PANTOPRAZOLE 40 MG TABLET PO SCH (08:50)
[2017-08-27] MEDS: ONDANSETRON 4 MG TAB PO SCH ×3 (08:50→19:34)
[2017-08-27] MEDS: LACTULOSE 20 GM/30 ML CUP PO SCH ×2 (08:50→16:39)
[2017-08-27] MEDS: CITALOPRAM HYDROBROMIDE 10 MG TAB PO SCH (08:50)
[2017-08-27] MEDS: DOCUSATE 100 MG CAP PO SCH (08:50)
[2017-08-27] MEDS: SENNOSIDES-DOCUSATE SODIUM 1 EACH TAB PO SCH (08:50)
[2017-08-27] MEDS: ASPIRIN 325 MG TAB PO SCH (08:50)
[2017-08-27] MEDS: DRONABINOL 2.5 MG CAP PO SCH (08:51)
[2017-08-27 09:21] VITALS: RESP 18
[2017-08-27] MEDS: PHYTONADIONE ORAL 5 MG/5 ML ORAL.SYRG PO SCH (11:47)
[2017-08-27] MEDS: CHOLECALCIFEROL 1,000 UNIT TAB PO SCH (11:51)
--- NOTE | 2017-08-27 15:29 | PN ---
PROGRESS NOTE DATE OF SERVICE: 08/27/2017 This is a 67-year-old woman who was admitted with obstructive jaundice, possible extrahepatic biliary obstruction secondary to metastatic endometrial carcinoma, is improving. No chest pain. No palpitations. No fever The family is considering hospice at this time. PHYSICAL EXAM: Pulse 75, blood pressure 126/82, respiration 18, temperature is 97.4, pulse ox 96% on room air. Patient is deeply jaundiced. CARDIOVASCULAR SYSTEM: S1, S2, muffled, no S3, no S4. RESPIRATORY: Diffuse scattered rhonchi. ABDOMEN: Soft, nontender. LEGS: No edema. NERVOUS SYSTEM: Diffusely weak. LABS: Not available. ASSESSMENT: 1. Obstructive jaundice, possible extrahepatic biliary obstruction secondary to metastatic endometrial carcinoma. 2. Large ulcerated mass in the duodenal wall in the second part of the duodenum during the EGD. 3. EGD and colonoscopy attempted, ERCP. 4. Increased AST, ALT. 5. Increased bilirubin, hyperbilirubinemia. 6. Extrahepatic biliary obstruction. 7. Coagulopathy, secondary to chronic liver disease. 8. History of endometrial carcinoma with metastasis. 9. Increased alkaline phosphatase. 10.Increased WBC. 11.History of appendectomy. 12.History of cholecystectomy. 13.History of anxiety, depression. 14.NO CODE, NO CARDIOPULMONARY RESUSCITATION, NO VENTILATOR. 15.HOSPICE AND COMFORT MEASURES. RECOMMENDATIONS AND DISCUSSION: Recommend to continue current medication, continue symptomatic treatment. Otherwise, at this time I would recommend to continue the hospice measures and prognosis extremely guarded because of multiple complex medical issues. Further recommendations to follow. MMODL / IJN: [id number] /
[2017-08-27 16:20] VITALS: BP 104/71; PULSE 71; TEMP 97.5
--- NOTE | 2017-08-27 21:05 | DS ---
DISCHARGE SUMMARY FINAL DIAGNOSES: 1. Obstructive jaundice with extrahepatic biliary obstruction secondary to metastatic endometrial carcinoma. 2. Large ulcerated mass in duodenal in the second part of the duodenum on EGD. 3. EGD, colonoscopy and attempted ERCP. 4. Increased AST, ALT. 5. Increased bilirubin, hyperbilirubinemia. 6. Extrahepatic biliary obstruction. 7. Coagulopathy secondary to liver metastases. 8. History of endometrial carcinoma with metastases. 9. Increased alkaline phosphatase. 10.Increased white count. 11.History of appendectomy. 12.History of cholecystectomy. 13.History of anxiety, depression. 14.NO CODE, NO CPR, NO VENT. 15.Hospice and comfort measures. DISCHARGE DISPOSITION: The patient will be discharged in stable condition with guarded prognosis. Patient will be discharged to hospice. HISTORY OF PRESENT ILLNESS: This 67-year-old woman with a past medical history of multiple medical problems was admitted with obstructive jaundice as well as extrahepatic biliary obstruction secondary to metastatic endometrial carcinoma. The patient was monitored closely. Because of lack of improvement and progressive worsening, the case was discussed with the family. Hematology/Oncology also followed the patient closely. Family and the patient decided to go with hospice. The patient will be discharged to hospice in a stable condition with extremely guarded prognosis. The prognosis remained guarded throughout the hospital stay. Please refer to the multiple consultations and progress notes for further information. Please refer to the hospice recommendations for medications. MMODL / IJN: [id number] /
== END 2017-08-27 19:39 | disposition hospice, inpatient (51) | DRG 374 ==
LOC: EC 12:59 → 5ONC 15:00
PROVIDERS: ADMIT Hospitalist; ATTEND Hospitalist
PROC: 0DB98ZX Excision of Duodenum, Via Natural or Artificial Opening Endoscopic, Diagnostic (ICD-10-PCS; principal; 2017-08-18 07:00)
PROC: 0FJB3ZZ Inspection of Hepatobiliary Duct, Percutaneous Approach (ICD-10-PCS; 2017-08-20)
DX: C78.4 Secondary malignant neoplasm of small intestine (principal); K83.1 Obstruction of bile duct; C78.01 Secondary malignant neoplasm of right lung; C78.02 Secondary malignant neoplasm of left lung; D68.4 Acquired coagulation factor deficiency; K31.5 Obstruction of duodenum; E86.0 Dehydration; E66.01 Morbid (severe) obesity due to excess calories; C78.89 Secondary malignant neoplasm of other digestive organs; Z51.5 Encounter for palliative care; Z66 Do not resuscitate; K56.41 Fecal impaction; I10 Essential (primary) hypertension; R16.1 Splenomegaly, not elsewhere classified; F43.20 Adjustment disorder, unspecified; F32.9 Major depressive disorder, single episode, unspecified; F41.9 Anxiety disorder, unspecified; Z79.82 Long term (current) use of aspirin; Z68.36 Body mass index [BMI] 36.0-36.9, adult; Z79.891 Long term (current) use of opiate analgesic; Z79.899 Other long term (current) drug therapy; Z85.42 Personal history of malignant neoplasm of other parts of uterus; Z90.710 Acquired absence of both cervix and uterus; Z90.49 Acquired absence of other specified parts of digestive tract; Z92.21 Personal history of antineoplastic chemotherapy; Z53.8 Procedure and treatment not carried out for other reasons
CPT/HCPCS: 36415; 43239; 47533; 71046; 74018; 74177; 80053; 81001; 82140; 82150; 83690; 85025; 85610; 88305; 88341; 88342; 96361; 96374; 96375; 99285